=== PATIENT | male | born 1955 | race Caucasian/White ===

== ENCOUNTER 2022-03-20 11:58 | Outpatient (CLI) | payer OTHER, MEDICARE, SELFPAY ==
[2022-03-20 18:22] LABS: Cholesterol* 160 mg/dL (90-199); Triglycerides* 225 mg/dL (40-149)
[2022-03-20 18:23] LABS: HDL Cholesterol* 45 mg/dL (>=40); LDL Cholesterol Calculated 70 mg/dL (<100)
[2022-03-20 18:45] LABS: PSA Screen* 0.73 ng/mL (0.10-4.00)
[2022-03-20 19:13] LABS: Vitamin B12* 262 pg/mL (243-894)
== END 2022-03-20 11:59 | disposition home or self-care (01) ==
PROVIDERS: PCP Family Medicine; Visit Provider Family Medicine
DX: E78.5 Hyperlipidemia, unspecified (principal); E11.9 Type 2 diabetes mellitus without complications; I10 Essential (primary) hypertension; Z12.5 Encounter for screening for malignant neoplasm of prostate; Z13.21 Encounter for screening for nutritional disorder
CPT/HCPCS: 80061; 82607; 84153

== ENCOUNTER 2022-10-25 08:15 | Outpatient (CLI) | payer MEDICARE, SELFPAY ==
--- OUTSIDE RECORDS SUMMARY | 2022-10-27 15:37 | XMS_ITS | Continuity of Care Document ---
Author Name Unknown Organization [facility] maren Address [address] [place] [address] Phone Care Team Providers Care Assembler Surgical Garment Name Role Phone Will Siva FISCHER Unavailable Unavailabl e Allergies, Adverse Reactions, Alerts Substance Reaction Status Criticality No Known Allergies Active No Inform ation Medications Medication Instructions Dosage Effective Dates (start - stop) Status Comments GLIPIZIDE (unknown strength) take 20 milligram by oral route 2 times every day Not Available - Active tizanidine 2 mg tablet take 1 tablet by oral route every 8 hours as needed not to exceed 3 doses in 24 hours 2 MG - Active bupropion HCl SR 150 mg tablet,12 hr sustained-release take 1 tablet by oral route 2 times every day 150 MG - Active atenolol 50 mg tablet take 1 tablet by oral route every day 50 MG - Active atorvastatin 20 mg tablet take 1 tablet by oral route every day 20 MG - Active citalopram 40 mg tablet take 1 tablet by oral route every day 40 MG - Active lisinopril 20 mg tablet take 1 tablet by oral route every day 20 MG - Active metformin 1,000 mg Tab take 1 tablet (1000MG) by oral route 2 times every day with morning and evening meals 1000 MG - Active omeprazole 20 mg Cap, Delayed Release - Active Procedures Procedure Date INTERLAMINAR CRV OR THRC FLUOROGUIDE FOR SPINE INJECTION 019 OFFICE/OUTPATIENT VISIT, EST INJ FORAMEN EPIDURAL L/S BILATERAL FLUOROGUIDE FOR SPINE INJECTION OFFICE/OUTPATIENT VISIT, EST INTERLAMINAR CRV OR THRC INTERLAMINAR LMBR OR SAC OR CAUDAL FLUOROGUIDE FOR SPINE INJECTION 017 INJECT TRIGGER POINTS, =/> 3 Injection, bupivicaine hydro OFFICE/OUTPATIENT VISIT, EST INTERLAMINAR CRV OR THRC FLUOROGUIDE FOR SPINE INJECTION 017 OFFICE/OUTPATIENT VISIT, EST INTERLAMINAR CRV OR THRC FLUOROGUIDE FOR SPINE INJECTION 017 OFFICE/OUTPATIENT VISIT, EST Injection, bupivicaine hydro INJECT TRIGGER POINTS, =/> 3 OFFICE/OUTPATIENT VISIT, NEW INJ TRIGGER POINT, 1/2 MUSCL Injection, bupivicaine hydro OFFICE/OUTPATIENT VISIT, EST OFFICE/OUTPATIENT VISIT, EST Disabilty Reports Forms OFFICE/OUTPATIENT VISIT, EST OFFICE/OUTPATIENT VISIT, EST INJECT SPINE C/T-Office FLUOROGUIDE FOR SPINE INJECT Betamethasone acet&sod ph Omnipaque 240 20ml INJ TRIGGER POINT, /2 MUSCL Injection, bupivicaine hydro OFFICE/OUTPATIENT VISIT, EST OFFICE/OUTPATIENT VISIT, EST OFFICE/OUTPATIENT VISIT, EST OFFICE/OUTPATIENT VISIT, EST INJ FORAMEN EPIDURAL LS FLUOROGUIDE FOR SPINE INJ Betamethasone acet&sod ph Omnipaque 240 20ml OFFICE/OUTPATIENT VISIT, EST OFFICE/OUTPATIENT VISIT, EST Disabilty Reports Forms OFFICE/OUTPATIENT VISIT, EST INJ FORAMEN EPIDURAL LS FLUOROGUIDE FOR SPINE INJECT Omnipaque 240 20ml Betamethasone acet&sod phosp Lidocaine injection INJ TRIGGER POINT, 1/2 MUSCL OFFICE/OUTPATIENT VISIT, EST OFFICE/OUTPATIENT VISIT, EST OFFICE/OUTPATIENT VISIT, EST OFFICE/OUTPATIENT VISIT, EST Prescription Prior Auth OFFICE/OUTPATIENT VISIT, EST OFFICE/OUTPATIENT VISIT, EST OFFICE/OUTPATIENT VISIT, EST Lidocaine injection Betamethasone acet&sod phosp Omnipaque 240 20ml INJECT SPINE C/T FLUOROGUIDE FOR SPINE INJECT OFFICE/OUTPATIENT VISIT, EST OFFICE/OUTPATIENT VISIT, EST OFFICE/OUTPATIENT VISIT, EST OFFICE/OUTPATIENT VISIT, EST INJECT TRIGGER POINTS, =/> 3 Betamethasone acet&sod phosp Injection, bupivicaine hydro No Charge For Visit Per Prov OFFICE/OUTPATIENT VISIT, EST Disabilty Reports Forms OFFICE/OUTPATIENT VISIT, EST PAPER STRIPPER LETTER Advance Directives Directive Yes / No Effective Date File Name No Information Encounters Encounter Description Practice Location Reason(s) For Visit Diagnoses Date Provider Providers Copied on Encounter [facility], [address] [place] [address], [id number] , [place] tel:[phone] [facility] [place] No Information 2 Glen Paniagua. [address] [place] [address], [id number], [place]. tel:[phone] [facility], [address] [place] [address], [id number] , [place] tel:[phone] [facility] Other cervical disc degeneration, cervicothoracic region Sep-0 201 9 Eva Mcdowell. [address] [place] [address], [id number], [place]. tel:[phone] [place] [address] [facility] Clinic, [address] [place] [address], [place], [id number] , [place] tel:[phone] [facility] [place] Other cervical disc degeneration, cervicothoracic region Sep-0 9 Glen Paniagua. [address] [place], [place], [id number], [place]. tel:[phone] OFFICE/OUTPA TIENT VISIT, EST [facility], [address] [place] [address], [id number] , [place] tel:[phone] [facility] [place] Back Pain (chief complaint)N maria m Pain (chief complaint) Other cervical disc degeneration, cervicothoracic regionPostlamin ectomy syndrome, not elsewhere classifiedOther intervertebral disc degeneration, lumbar regionOther spondylosis with myelopathy, lumbar region Kassie Roxanna. [address] [place] [address], [id number], [place]. tel:[phone] Specialist: Aelc Weiss MD [facility] [address] [place] [address], [address]. tel:[phone] [facility], [address] [place] [address], [id number] , [place] [phone] [facility] Other intervertebral disc degeneration, lumbar region Maciasvivi Hernandez. [facility], [address] [facility] [address] [facility] [address], [place], [address], [place]. tel:[phone] OFFICE/OUTPA TIENT VISIT, [facility], [address] [place] [address], [id number] , [place] tel:[phone] [facility] [place] Back Pain (chief complaint)N maria m Pain (chief complaint) Postlaminectomy syndrome, not elsewhere classifiedOther spondylosis with myelopathy, lumbar regionOther cervical disc degeneration, cervicothoracic regionOther intervertebral disc degeneration, lumbar region Rasta Carter. [address] [place], [place], [id number], [place]. tel:[phone] Specialist: Alec Weiss MD [facility] [address] [facility] [address], [place], [address]. tel:[phone] [facility], [address] [place] [address], [id number] , [place] tel:[phone] [facility] [place] Spondylolysis, cervicothoracic region 0 7 Kokayeff July. [address] [place] [address], [id number], [place]. tel:[phone] [place] [address] [facility], [address] [place] [address], [id number] , [place] tel:[phone] [facility] [place] Spondylolysis, cervicothoracic region Apr-2 0201 7 Van Overbeke Emma. [address] [place] [address], [id number], [place]. tel:[phone] [place] [address] [facility], [address] [place] [address], [id number] , [place] tel:[phone] [facility] [place] Other spondylosis with myelopathy, lumbar region Apr- 9 7 Kokayeff July. [address] [place] [address], [id number], [place]. [phone] [place] [address] [facility], [address] [place] [address], [id number] , [place] tel:[phone] [facility] [place] Myalgia Apr-0 5-201 7 Van Overbeke Emma. [address] [place] [address], [id number], [place]. tel:[phone] OFFICE/OUTPA TIENT VISIT, EST [facility], [address] [place] [address], [id number] , [place] tel:[phone] [facility] [place] Neck pain (chief complaint)B ack Pain (chief complaint) Postlaminectomy syndrome, not elsewhere classifiedOther spondylosis with myelopathy, lumbar region Sep-0 6-201 7 Van Overbeke Emma. [address] [place] [address], [id number], [place]. tel:[phone] Specialist: [facility] [address] [facility] [address], [place], [address]. tel:[phone] [facility], [address] [place] [address], [id number] , [place] tel:[phone] [facility] [place] Other cervical disc degeneration, cervicothoracic region 7 Daly Metcalf. [address] [place] [address], [id number], [place]. [phone] [facility], [address] [place] [address], [id number] , [place] tel:[phone] [facility] [place] Other cervical disc degeneration, cervicothoracic region Glen Paniagua. [address] [place] [address], [id number], [place]. tel:[phone] OFFICE/OUTPA TIENT VISIT, EST [facility], [address] [place] [address], [id number] , [place] tel:[phone] [facility] [place] Widespread pain (chief complaint) MyalgiaOther cervical disc degeneration, unsp cervical regionOther intervertebral disc degeneration, lumbar regionPostlamin ectomy syndrome, not elsewhere classified 7 Rasta Carter. [address] [place] [address], [id number], [place]. tel:[phone] Specialist: Alec Weiss [facility] [address] [place] [address], [place], [address]. tel:[phone] [facility], [address] [place] [address], [id number] , [place] tel:[phone] [facility] [place] Other cervical disc degeneration, unsp cervical region 7 Eva Mcdowell. [address] [place] [address], [id number], [place]. tel:[phone] OFFICE/OUTPA TIENT VISIT, EST [facility], [address] [place] [address], [id number] , [place] tel:[phone] [facility] [place] Widespread pain (chief complaint) MyalgiaOther cervical disc degeneration, unspecified cervical regionOther intervertebral disc degeneration, lumbar regionPostlamin ectomy syndrome, not elsewhere classified Apr-1 7 Rasta Carter. [address] [place] [address], [id number], [place]. tel:[phone] Specialist: [facility] [address] [place] [address], [address]. [phone] [facility], [address] [place] [address], [id number] , [place] tel:[phone] [facility] [place] Myalgia Apr-0 7 Rasta Carter. [address] [place] [address], [id number], [place]. tel:[phone] OFFICE/OUTPA TIENT VISIT, [facility], [address] [place] [address], [id number] , [place] tel:[phone] [facility] Widespread pain (chief complaint) MyalgiaOther cervical disc degeneration, unspecified cervical regionOther intervertebral disc degeneration, lumbar regionPostlamin ectomy syndrome, not elsewhere classified Mar-2 7 Rasta Carter. [address] [place] [address], [id number], [place]. tel:[phone] Specialist: [facility] [address] [place] [address], [address]. [phone] [facility], [address] [place] [address], [id number] , [place] tel:[phone] [facility] chronic pain (chief complaint) Myalgia and myositis, unspecifiedDisp lacement of cervical intervertebral disc without myelopathy Apr-0 3 Glen Paniagua. [address] [place] [address], [id number], [place]. tel:[phone] OFFICE/OUTPA TIENT VISIT, [facility], [address] [place] [address], [id number] , [place] tel:[phone] [facility] [place] widespread pain (chief complaint) Displacement of cervical intervertebral disc without myelopathyDegen eration of lumbar or lumbosacral intervertebral disc 3 Will Siva. [address] [place] [address], [id number], [place]. tel:[phone] Specialist: [facility] [address] [place] [address], [address]. tel:[phone] OFFICE/OUTPA TIENT VISIT, EST [facility], [address] [place] [address], [id number] , [place] tel:[phone] [facility] [place] widespread pain (chief complaint) Displacement of cervical intervertebral disc without myelopathyDegen eration of lumbar or lumbosacral intervertebral disc 3 Will Siva. [address] [place] [address], [id number], [place]. tel:[phone] Specialist: [facility] [address] [place] [address], [id number]. tel:[phone] [facility], [address] [place] [address], [id number] , [place] tel:[phone] [facility] [place] No Information 2 No Information OFFICE/OUTPA TIENT VISIT, EST [facility], [address] [place] [address], [id number] , [place] tel:[phone] [facility] [place] widespread pain (chief complaint) Displacement of cervical intervertebral disc without myelopathyDegen eration of lumbar or lumbosacral intervertebral disc 2 Will Siva. [address] [place] [address], [id number], [place]. tel:[phone] Specialist: [facility] [address] [place] [address], [address]. tel:[phone] OFFICE/OUTPA TIENT VISIT, [facility], [address] [place] [address], [id number] , [place] tel:[phone] [facility] [place] widespread pain (chief complaint) Displacement of cervical intervertebral disc without myelopathyDegen eration of lumbar or lumbosacral intervertebral disc 2 No Demurrage Agent: [facility] [address] [place] [address], [address]. [phone] [facility], [address] [place], [place], [id number] , [place] tel:[phone] [facility] [place] Displacement of cervical intervertebral disc without myelopathy 2 Will Siva. [address] [place], [place], [id number], [place]. tel:[phone] OFFICE/OUTPA TIENT VISIT, EST [facility], [address] [place] [address], [id number] , [place] tel:[phone] [facility] widespread pain (chief complaint) Spasm of muscleDisplacem ent of cervical intervertebral disc without myelopathyDegen eration of lumbar or lumbosacral intervertebral disc 2 No Demurrage Agent: [facility] [address] [place] [address], [address]. [phone] OFFICE/OUTPA TIENT VISIT, [facility], [address] [place] [address], [id number] , [place] tel:[phone] [facility] [place] widespread pain (chief complaint) Displacement of cervical intervertebral disc without myelopathy 2 Will Siva. [address] [place], [place], [id number], [place]. tel:[phone] Specialist: [facility] [address] [place] [address], [address]. tel:[phone] OFFICE/OUTPA TIENT VISIT, [facility], [address] [place] [address], [id number] , [place] tel:[phone] [facility] [place] left neck pain (chief complaint)l eg pain/weakne ss (chief complaint) Degeneration of lumbar or lumbosacral intervertebral disc 2 Will Siva. [address] [place] [address], [id number], [place]. tel:[phone] Specialist: [facility] [address] [place] [address], [address]. tel:[phone] OFFICE/OUTPA TIENT VISIT, EST [facility], [address] [place] [address], [id number] , [place] tel:[phone] [facility] [place] right neck pain (chief complaint)r ight knee pain (chief complaint) Degeneration of lumbar or lumbosacral intervertebral disc 2 Will Siva. [address] [place] [address], [id number], [place]. tel:[phone] Specialist: [facility] [address] [place] [address], [address]. tel:[phone] [facility], [address] [place] [address], [id number] , [place] tel:[phone] [facility] [place] Degeneration of lumbar or lumbosacral intervertebral disc 2 Will Siva. [address] [place], [place], [id number], [place]. tel:[phone] OFFICE/OUTPA TIENT VISIT, [facility], [address] [place] [address], [id number] , [place] tel:[phone] [facility] [place] neck pain (chief complaint)l eft leg pain (chief complaint) Degeneration of lumbar or lumbosacral intervertebral discDisplacemen t of cervical intervertebral disc without myelopathy 2 Will Siva. [address] [place] [address], [id number], [place]. tel:[phone] Specialist: [facility] [address] [place] [address], [address]. tel:[phone] OFFICE/OUTPA TIENT VISIT, EST [facility], [address] [place] [address], [id number] , [place] tel:[phone] [facility] Displacement of cervical intervertebral disc without myelopathy 1 Will Siva. [address] [place] [address], [id number], [place]. tel:[phone] Specialist: [facility] [address], [address]. [phone] [facility], [address] [place] [address], [id number] , [place] tel:[phone] [facility] [place] No Information 1 No Information OFFICE/OUTPA TIENT VISIT, [facility], [address] [place] [address], [id number] , [place] tel:[phone] [facility] neck pain (chief complaint) Displacement of cervical intervertebral disc without myelopathy Sep-2 1 Will Siva. [address] [place] [address], [id number], [place]. tel:[phone] Specialist: Bob Perez [facility] [address] [place] [address], [address]. [phone] [place] [address] Pain [facility], [address] [place] [address], [id number] , [place] tel:[phone] [facility] [place] Degeneration of lumbar or lumbosacral intervertebral disc 1 Will Siva. [address] [place] [address], [id number], [place]. tel:[phone] OFFICE/OUTPA TIENT VISIT, [facility], [address] [place] [address], [id number] , [place] tel:[phone] [facility] neck and low back pain (chief complaint) Displacement of cervical intervertebral disc without myelopathyNeura lgia, neuritis, and radiculitis, unspecifiedDege neration of lumbar or lumbosacral intervertebral discSpasm of muscle 1 Will Siva. [address] [place], [place], [id number], [place]. tel:[phone] Specialist: [facility] [address], [address]. tel:[phone] OFFICE/OUTPA TIENT VISIT, [facility], [address] [place] [address], [id number] , [place] tel:[phone] [facility] [place] bilateral neck pain (chief complaint) Neuralgia, neuritis, and radiculitis, unspecifiedDisp lacement of cervical intervertebral disc without myelopathy 1 Will Siva. [address] [place], [place], [id number], [place]. tel:[phone] Specialist: Bob Perez [facility] [address], [address]. tel:[phone] OFFICE/OUTPA TIENT VISIT, [facility], [address] [place] [address], [id number] , [place] tel:[phone] [facility] neck pain (chief complaint) Displacement of cervical intervertebral disc without myelopathyNeura lgia, neuritis, and radiculitis, unspecified 1 Will Siva. [address] [place], [place], [id number], [place]. tel:[phone] Specialist: Bob Perez [facility] [address], [address]. tel:[phone] OFFICE/OUTPA TIENT VISIT, [facility], [address] [place] [address], [id number] , [place] tel:[phone] [facility] neck pain (chief complaint) Displacement of cervical intervertebral disc without myelopathyNeura lgia, neuritis, and radiculitis, unspecified 1 Will Siva. [address] [place] [address], [place], [id number], [place]. tel:[phone] Specialist: [facility] [address] [place] [address], [address]. tel:[phone] OFFICE/OUTPA TIENT VISIT, [facility], [address] [place] [address], [id number] , [place] tel:[phone] [facility] neck pain (chief complaint) Displacement of cervical intervertebral disc without myelopathyNeura lgia, neuritis, and radiculitis, unspecified Dec-2 1-201 0 Will Siva. [address] [place] [address], [id number], [place]. tel:[phone] Specialist: [facility] [address] [place] [address], [address]. tel:[phone] OFFICE/OUTPA TIENT VISIT, [facility], [address] [place] [address], [id number] , [place] tel:[phone] [facility] neck pain (chief complaint) Displacement of cervical intervertebral disc without myelopathyNeura lgia, neuritis, and radiculitis, unspecified Oct-2 0-201 0 Will Siva. [address] [place] [address], [id number], [place]. tel:[phone] Specialist: [facility] [address] [place] [address], [address]. tel:[phone] OFFICE/OUTPA TIENT VISIT, [facility], [address] [place] [address], [id number] , [place] tel:[phone] [facility] neck pain (chief complaint) Pain in thoracic spineDisplaceme nt of cervical intervertebral disc without myelopathy Sep-0 8-201 0 Will Siva. [address] [place], [place], [id number], [place]. tel:[phone] Specialist: [facility] [address], [place], [address]. tel:[phone] [facility], [address] [place] [address], [id number] , [place] [phone] [facility] Inj bilateral lumbar spine pain (chief complaint) CervicalgiaDisp lacement of cervical intervertebral disc without myelopathyPain in thoracic spine 0 Will Siva. [address] [place] [address], [id number], [place]. tel:[phone] OFFICE/OUTPA TIENT VISIT, EST [facility], [address] [place] [address], [id number] , [place] [phone] [facility] [place] neck pain (chief complaint) Displacement of cervical intervertebral disc without myelopathyCervi calgia 0 Will Siva. [address] [place] [address], [id number], [place]. tel:[phone] Specialist: [facility] [address] [place] [address], [address]. tel:[phone] OFFICE/OUTPA TIENT VISIT, EST [facility], [address] [place] [address], [id number] , [place] tel:[phone] [facility] [place] neck pain (chief complaint) CervicalgiaDisp lacement of cervical intervertebral disc without myelopathyPain in thoracic spine 0 Will Siva. [address] [place] [address], [id number], [place]. tel:[phone] Specialist: [facility] [address] [place] [address], [id number]. tel:[phone] OFFICE/OUTPA TIENT VISIT, EST [facility], [address] [place] [address], [id number] , [place] tel:[phone] [facility] [place] neck pain (chief complaint) Displacement of cervical intervertebral disc without myelopathyPain in thoracic spineCervicalgi aCarpal tunnel syndrome Oct- 0 Will Siva. [address] [place], [place], [id number], [place]. tel:[phone] Specialist: [facility] [address], [place], [address]. tel:[phone] OFFICE/OUTPA TIENT VISIT, EST [facility], [address] [place] [address], [id number] , [place] tel:[phone] [facility] [place] bilateral mid-back pain (chief complaint) Myalgia and myositis, unspecifiedPain in thoracic spineNeck sprain 0 Will Siva. [address] [place] [address], [id number], [place]. tel:[phone] [facility], [address] [place] [address], [id number] , [place] tel:[phone] [facility] No Information 0 No Information OFFICE/OUTPA TIENT VISIT, EST [facility], [address] [place] [address], [id number] , [place] tel:[phone] [facility] neck pain (chief complaint) Displacement of cervical intervertebral disc without myelopathyDegen eration of cervical intervertebral discCervicalgia Carpal tunnel syndrome 0 Will Isva. [address] [place] [address], [id number], [place]. tel:[phone] Specialist: [facility] [address], [place], [address]. tel:[phone] [facility], [address] [place] [address], [id number] , [place] tel:[phone] [facility] neck pain (chief complaint) Displacement of cervical intervertebral disc without myelopathyDegen eration of cervical intervertebral discCervicalgia 9 Will Siva. [address] [place] [address], [id number], [place]. tel:[phone] [facility], [address] [place] [address], [id number] , tel:[phone] [facility] [place] No Information 9 Will Siva. [address] [place] [address], [id number], [place]. tel:[phone] OFFICE/OUTPA TIENT VISIT, EST [facility], [address] [place] [address], [id number] , [place] tel:[phone] [facility] neck pain (chief complaint)t horacic spine pain (chief complaint) Degeneration of cervical intervertebral discCervicalgia Spasm of muscleDisplacem ent of cervical intervertebral disc without myelopathy 9 Will Siva. [address] [place] [address], [id number], [place]. tel:[phone] [employer]: ! Add QRC. [facility], [address] [place] [address], [id number] , tel:[phone] [facility] [place] No Information 9 No Information Family History Family Member Type Diagnosis Age At Onset Sister Problem (finding) Back Pain Mother Problem (finding) Back Pain Payers Payer name Insurance type Covered constitution party ID Rossana mcclellan(s) Charliewilfredo [facility] Replacement [id number] Social History Type Description Quantity Date Captured Comments Sex Male Smoking Status No Information Chief Complaint And Reason For Visit No Information Reason For Referral Reason For Referral No Information Plan Of Treatment Date Type Action Status Referral Ordered: MRI THORACIC SPINE W/O DYE ordered Referral Ordered: MRI LUMBAR SPINE W/O DYE ordered Referral Ordered: Refer to [facility] ordered History Of Present Illness Encounter Date Complaint History Of Prese nt Illness Back Pain (comments) Patient is here for follow up for ongoing cervical and lumbar pain. States his pain has been fluctuating since last OV. He had recently completed a lumbar DARIEN on 01/27 which provided 90-100% pain relief, further benefit still pending. Previous cervical DARIEN provided about 80% pain relief and is interested in repeat procedure. Currently prescribed Buprenorphine by his PCP which provides benefit. Denies side effects from current medication regimen. No other concerns today. Back Pain Severity level i s 7. Duration: chronic. The problem is fluctuating. It occurs persistently. Location of pain is lower back and neck.The patient describes the pain as an ache and sharp. Symptoms are aggravated by lifting, running, sitting, standing, twisting, movement and prolonged positioning. Symptoms are relieved by changing positions. Neck Pain Neck Pain Duration: chroni c. Back Pain Duration: chroni c. The problem is stable. It occurs persistently. Location of pain is lower back, neck and right shoulder. Pain is radiated to the right thigh.The patient describes the pain as an ache and sharp. Symptoms are aggravated by bending, lifting, lying/rest, housework and prolonged positioning. Symptoms are relieved by ice, rest, sitting, changing positions and standing. Back Pain (comments) Yony is h ere for a followup. He is not prescribed opioids due to several [employer] violations. He is interested in repeating epidurals. His last epidural was about a year ago. He also had lumbar imaging a year ago that he will track down and present to [facility] before scheduling an epidural. States he willing left [facility] to taper off opioids and was rx'ed Suboxone by Dr. Hopson. He also plans to taper off the Suboxone in the future. Back Pain Duration: chroni c. Neck pain The problem is s evere. Duration: chronic. The status of the symptoms are fluctuating. The frequency of pain is constant. Location of pain is bilateral head, bilateral posterior neck, left shoulder and bilateral upper back. There is radiation of pain to the left upper arm. The patient describes the pain as aching. Aggravating factors include climbing stairs, lifting and twisting. Relieving factors include ice, massage, narcotic analgesics and rest. Neck pain (comments) Patient is here for follow-up. Originally scheduled for pre-trial education, but has concerns regarding restrictions and plans on rescheduling. 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 Plans on possibly completing trial in June. Concerned about risks with trial as well. DARIEN completed on 02/19/17, has had 50% reduction, but may already wearing off. Requests revision of prescribing opioid medications. Currently being prescribed meds by PCP and would like [facility] to take over medications. Plans on transfer all injections or procedures to [facility]. Widespread pain Severity level i s 6. Duration: chronic. Location of the pain is lower back, upper back, neck and left shoulder. The patient describes it as sharp, achy and tingling. It occurs persistently. The problem is fluctuating. Symptom is aggravated by bending, standing, walking, lifting, twisting and prolonged positioning. Relieving factors include sitting, stretching, massage, rest, cold, Rx Meds, PT and lying down. Pertinent negatives include diarrhea, fatigue, fever and incontinence (urinary). Widespread pain (comments) Ed is here for a followup. He is not prescribed opioid medications from [facility] d/t multiple [employer] violations. Other medications provide 40% relief from pain, brings pain down from 9 to 6 out of 10. States receiving 80% relief with GAUDENCIO in radicular arm pain. He is here today regarding mistakes made during GAUDENCIO on 11/07. He has concerns that he has not been seen by a doctor since he reestablished at [facility]. States not being told to schedule another OV after injection to speak about results. He tries to walk a mile every day. He is also wanting [facility] to take over medication management. Widespread pain Severity level i s 5 w/meds. Duration: chronic. Location of the pain is lower back, mid back, upper back, right shoulder, rt arm and rt knee. The patient describes it as sharp and achy. It occurs persistently. The problem is fluctuating. Symptom is aggravated by running, sitting, standing, walking, lifting, running and twisting. Relieving factors include sitting, supine, stretching, massage, rest, heat, cold, Rx Meds and PT. Pertinent negatives include diarrhea, fatigue, fever and incontinence (urinary). Widespread pain (comments) Ed is here for a followup after initial visit. He is not prescribed opioid medication from [facility] d/t multple [employer] violations. Other medications provide 30-40% relief from pain. C/o intense shoulder pain that radiates down left arm, he does not believe it is orthopedic pain. TPI was effective at loosening muscle tightness. He has been completing PT since July and has noticed an increase in strength and stamina. States he will be starting to attend a support group for mental illness and pain in November. Widespread pain Onset occurred g radually. Severity level is 4-5. Duration: chronic. Location of the pain is lower back, mid back, upper back, neck, lt thumb, bl feet and head. The patient describes it as achy, stabbing and numbness. It occurs persistently. Symptom is aggravated by bending, running, standing, walking, turning head, twisting and housework. Relieving factors include sitting, rest, cold, Rx Meds and lying down. Pertinent negatives include diarrhea, dyspnea, fever and incontinence (urinary). Widespread pain (comments) Shashank rueda is here for a consult regarding widespread pain. He was referred by Dr. Jo at [facility] [place]. Pain started with progression of degenerative disc disorder. Pain symptoms were aggravated after partial discetomy in 2002. He had to stop working when pain became too intense in 2007. His cervical region is flattened d/t DDD. [facility] states risk outweighs benefits for another fusion for cerivcal region. Neck is worst pain with radicular left shoulder pain. He is interested in completing TPIs. He was a previous patient with [facility] was terminated d/t multiple [employer] violation. He feels he was unfairly terminated, stating he did not know what the first two violations were. He currently doing PT at [facility] and is effective for muscle strengthening. His PCP is able to continue ordering PT. He has previously completed GAUDENCIO and LESI and states effective at relieving pain. GAUDENCIO was ineffective at relieving pain. Imaging was completed at [facility]. Medications:Oxycontin, Oxycodone Functional Status Date Functional Assessmen t No Information Instructions Date Instruction Additional Infor mation Reviewed medications Activity as tolerated Ice as needed Discontinue current medication Reviewed medications Medications counted, patient is on track. Continue current medication Reviewed medications Patient did not brin g medications to office visit today. Depression Screen Oswestry Score Continue current medication Reviewed medications Medications counted, patient is on track. Change medication Reviewed medications Patient did not brin g medications to office visit today. Continue current medication Reviewed medications Patient did not brin g medications to office visit today. Change medication Continue current medication Reviewed medications Medications counted, patient is on track. Medications counted, patient is on track. Protective activity Medications counted, patient has self-escalated dose. Patient did not brin g medications to office visit today. Patient did not brin g medications to office visit today. Continue current medication Assessments Type Assessment Date No Information Patient Care Teams Name Effective Dates (start - stop) Status Members No Information
== END 2022-10-25 08:16 | disposition home or self-care (01) ==
LOC: NFLDREF 10-27 15:28
PROVIDERS: PCP Family Medicine; Referring Provider Family Medicine; Visit Provider Family Medicine
DX: E13.9 Other specified diabetes mellitus without complications (principal); E78.5 Hyperlipidemia, unspecified; D64.9 Anemia, unspecified; Z01.818 Encounter for other preprocedural examination; Z12.5 Encounter for screening for malignant neoplasm of prostate
CPT/HCPCS: 80048; 80061; 84153

== ENCOUNTER 2023-02-27 09:45 | Outpatient (CLI) | payer MEDICARE, SELFPAY | END 2023-02-27 09:46 | disposition home or self-care (01) | LOC: NFLDREF 03-03 05:57 | PROVIDERS: PCP Family Medicine; Referring Provider Family Medicine; Visit Provider Family Medicine | DX: B18.2 Chronic viral hepatitis C (principal); E13.9 Other specified diabetes mellitus without complications; E78.5 Hyperlipidemia, unspecified; Z12.5 Encounter for screening for malignant neoplasm of prostate; Z13.0 Encounter for screening for diseases of the blood and blood-forming organs and certain disorders involving the immune mechanism | CPT/HCPCS: 80053; 80061; 84153 ==

== ENCOUNTER 2023-03-05 09:19 | Outpatient (CLI) | payer MEDICARE, SELFPAY ==
--- OUTSIDE RECORDS SUMMARY | 2023-03-05 09:24 | XMS_ITS | Continuity of Care Document ---
Author Name Unknown Organization [facility] Address [address] [facility] [place] [address] Phone Care Team Providers Care Entry Level Management Name Role Phone Will Siva FISCHER Unavailable [...] EST Disabilty Reports Forms OFFICE/OUTPATIENT VISIT, EST DISABILITY COUNSELOR LETTER Advance Directives Directive Yes / No Effective Date File Name No Information Encounters Encounter Description Practice Location Reason(s) For Visit Diagnoses Date Provider Providers Copied on Encounter [facility], [address] [place] [address], [id number] , [place] tel:[phone] [facility] [place] No Information 2 Glen Paniagua. [address] [place] [address], [id number], [place]. tel:[phone] [facility], [address] [place] [address], [id number] , [place] tel:[phone] [facility] Other cervical disc degeneration, cervicothoracic region Sep-0 201 9 Eva Mcdowell. [address] [place] [address], [id number], [place]. tel:[phone] [place] [address] [facility], [address] [place] [address], [place], [id number] , [place] tel:[phone] [facility] [place] Other cervical disc degeneration, cervicothoracic region Sep-0 9 Glen Paniagua. [address] [place], [place], [id number], [place]. tel:[phone] OFFICE/OUTPA TIENT VISIT, EST [facility], [address] [place] [address], [id number] , [place] tel:[phone] [facility] [place] Back Pain (chief complaint)N maria m Pain (chief complaint) Other cervical disc degeneration, cervicothoracic regionPostlamin ectomy syndrome, not elsewhere classifiedOther intervertebral disc degeneration, lumbar regionOther spondylosis with myelopathy, lumbar region Kassie Roxanna. [address] [place] [address], [id number], [place]. tel:[phone] Specialist: Alec Weiss MD [facility] [address] Blalexander [address] [place] [address], [id number]. tel:[phone] [facility], [address] [place] [address], [id number] , [place] [phone] [facility] Other intervertebral disc degeneration, lumbar region Maciasvivi Hernandez. [facility], [address] [facility] [address] [facility] [address], [place], [address], [place]. tel:[phone] OFFICE/OUTPA TIENT VISIT, [facility], [address] [place] [address], [id number] , [place] tel:[phone] [facility] [place] Back Pain (chief complaint)N maria m Pain (chief complaint) Postlaminectomy syndrome, not elsewhere classifiedOther spondylosis with myelopathy, lumbar regionOther cervical disc degeneration, cervicothoracic regionOther intervertebral disc degeneration, lumbar region Rasta Carter. [address], [place], [id number], [place]. tel:[phone] Specialist: Alec Weiss MD [facility] [address] [facility] [address], [place], [address]. tel:[phone] [facility], [address] [place] [address], [id number] , [place] tel:[phone] [facility] [place] Spondylolysis, cervicothoracic region 0 7 Kokayeff July. [address] [place] [address], [id number], [place]. tel:[phone] [place] [address] [facility], [address] [place] [address], [id number] , [place] tel:[phone] [facility] [place] Spondylolysis, cervicothoracic region Apr-2 0201 7 Van Overbeke Emma. [address] [place] [address], [id number], [place]. tel:[phone] [place] [address] [facility], [address] [place] [address], [id number] , [place] tel:[phone] [facility] [place] Other spondylosis with myelopathy, lumbar region Apr- 9 7 Kokayeff July. [address] [place] [address], [id number], [place]. [phone] [place] [address] [facility], [address] [place] [address], [id number] , [place] tel:[phone] [facility] [place] Myalgia Apr-0 5-201 7 Van Overbeke Emma. [address] [place] [address], [id number], [place]. tel:[phone] OFFICE/OUTPA TIENT VISIT, EST [facility], [address] [place] [address], [id number] , [place] tel:[phone] [facility] [place] Neck pain (chief complaint)B ack Pain (chief complaint) Postlaminectomy syndrome, not elsewhere classifiedOther spondylosis with myelopathy, lumbar region Sep-0 6-201 7 Van Overbeke Emma. [address] [place] [address], [id number], [place]. tel:[phone] Specialist: [facility] [address]gg [facility] [address], [place], [address]. tel:[phone] [facility], [address] [place] [address], [id number] , [place] tel:[phone] [facility] [place] Other cervical disc degeneration, cervicothoracic region 7 Daly eMtcalf. [address] [place] [address], [id number], [place]. [phone] [facility], [address] [place] [address], [id number] , [place] tel:[phone] [facility] [place] Other cervical disc degeneration, cervicothoracic region Glen Paniagua. [address] [place] [address], [id number], [place]. tel:[phone] OFFICE/OUTPA TIENT VISIT, EST [facility], [address] [place] [address], [id number] , [place] tel:[phone] [facility] [place] Widespread pain (chief complaint) MyalgiaOther cervical disc degeneration, unsp cervical regionOther intervertebral disc degeneration, lumbar regionPostlamin ectomy syndrome, not elsewhere classified 7 Rasta Carter. [address] [place] [address], [id number], [place]. tel:[phone] Specialist: Alec Weiss [facility] [address] [place] [address], [place], [address]. tel:[phone] [facility], [address] [place] [address], [id number] , [place] tel:[phone] [facility] [place] Other cervical disc degeneration, unsp cervical region 7 Eva Mcdowell. [address] [place] [address], [id number], [place]. tel:[phone] OFFICE/OUTPA TIENT VISIT, EST [facility], [address] [place] [address], [id number] , [place] tel:[phone] [facility] [place] Widespread pain (chief complaint) MyalgiaOther cervical disc degeneration, unspecified cervical regionOther intervertebral disc degeneration, lumbar regionPostlamin ectomy syndrome, not elsewhere classified Apr-1 7 Rasta Carter. [address] [place] [address], [id number], [place]. tel:[phone] Specialist: [facility] [address], [address]. [phone] [facility], [address] [place] [address], [id number] , [place] tel:[phone] [facility] Myalgia Apr-0 7 Rasta Carter. [address] [place] [address], [id number], [place]. tel:[phone] OFFICE/OUTPA TIENT VISIT, [facility], [address] [place] [address], [id number] , [place] tel:[phone] [facility] Widespread pain (chief complaint) MyalgiaOther cervical disc degeneration, unspecified cervical regionOther intervertebral disc degeneration, lumbar regionPostlamin ectomy syndrome, not elsewhere classified Mar-2 7 Rasta Carter. [address] [place] [address], [id number], [place]. tel:[phone] Specialist: [facility] De[address], [address]. [phone] [facility], [address] [place] [address], [id number] , [place] tel:[phone] [facility] chronic pain (chief complaint) Myalgia and myositis, unspecifiedDisp lacement of cervical intervertebral disc without myelopathy Apr-0 3 Glen Paniagua. [address] [place] [address], [id number], [place]. tel:[phone] OFFICE/OUTPA TIENT VISIT, [facility], [address] [place] [address], [id number] , [place] tel: [phone] [facility] [place] widespread pain (chief complaint) Displacement of cervical intervertebral disc without myelopathyDegen eration of lumbar or lumbosacral intervertebral disc 3 Will Siva. [address] [place] [address], [id number], [place]. tel:[phone] Specialist: [facility] [address] [place] [address], [id number]. tel:[phone] OFFICE/OUTPA TIENT VISIT, EST [facility], [address] [place] [address], [id number] , [place] tel:[phone] [facility] [place] widespread pain (chief complaint) Displacement of cervical intervertebral disc without myelopathyDegen eration of lumbar or lumbosacral intervertebral disc 3 Will Siva. [address] [place] [address], [id number], [place]. tel:[phone] Specialist: [facility] [address] [place] [address], [id number]. [phone] [facility], [address] [place] [address], [id number] , [place] tel:[phone] [facility] [place] No Information 2 No Information OFFICE/OUTPA TIENT VISIT, EST [facility], [address] [place] [address], [id number] , [place] tel:[phone] [facility] [place] widespread pain (chief complaint) Displacement of cervical intervertebral disc without myelopathyDegen eration of lumbar or lumbosacral intervertebral disc 2 Will Siva. [address] [place] [address], [id number], [place]. tel:[phone] Specialist: [facility] [address] [place] [address], [id number]. tel:[phone] OFFICE/OUTPA TIENT VISIT, [facility], [address] [place] [address], [id number] , [place] tel:[phone] [facility] [place] widespread pain (chief complaint) Displacement of cervical intervertebral disc without myelopathyDegen eration of lumbar or lumbosacral intervertebral disc 2 No Urban Sociologist: [facility] [address] [place] [address], [address]. tel:[phone] [facility], [address] [place], [place], [id number] , [place] tel:[phone] [facility] [place] Displacement of cervical intervertebral disc without myelopathy 2 Will Siva. [address], [place], [id number], [place]. tel:[phone] OFFICE/OUTPA TIENT VISIT, EST [facility], [address] [place] [address], [id number] , [place] tel:[phone] [facility] widespread pain (chief complaint) Spasm of muscleDisplacem ent of cervical intervertebral disc without myelopathyDegen eration of lumbar or lumbosacral intervertebral disc 2 No Urban Sociologist: [facility] [address] [place] [address], [address]. tel:[phone] OFFICE/OUTPA TIENT VISIT, [facility], [address] [place] [address], [id number] , [place] tel:[phone] [facility] [place] widespread pain (chief complaint) Displacement of cervical intervertebral disc without myelopathy 2 Will Siva. [address], [place], [id number], [place]. tel:[phone] Specialist: [facility] [address] [place] [address], [address]. tel:[phone] OFFICE/OUTPA TIENT VISIT, [facility], [address] [place] [address], [id number] , [place] tel:[phone] [facility] [place] left neck pain (chief complaint)l eg pain/weakne ss (chief complaint) Degeneration of lumbar or lumbosacral intervertebral disc 2 Will Siva. [address] [place] [address], [id number], [place]. tel:[phone] Specialist: [facility] [address] [place] [address], [address]. tel:[phone] OFFICE/OUTPA TIENT VISIT, EST [facility], [address] [place] [address], [id number] , [place] tel:[phone] [facility] [place] right neck pain (chief complaint)r ight knee pain (chief complaint) Degeneration of lumbar or lumbosacral intervertebral disc 2 Will Siva. [address] [place] [address], [id number], [place]. tel:[phone] Specialist: [facility] [address] [place] [address], [address]. tel:[phone] [facility], [address] [place] [address], [id number] , [place] tel:[phone] [facility] [place] Degeneration of lumbar or lumbosacral intervertebral disc 2 Will Siva. [address], [place], [id number], [place]. tel:[phone] OFFICE/OUTPA TIENT VISIT, [facility], [address] [place] [address], [id number] , [place] tel:[phone] [facility] [place] neck pain (chief complaint)l eft leg pain (chief complaint) Degeneration of lumbar or lumbosacral intervertebral discDisplacemen t of cervical intervertebral disc without myelopathy 2 Will Siva. [address] [place] [address], [id number], [place]. tel:[phone] Specialist: [facility] [address] [place] [address], [id number]. tel:[phone] OFFICE/OUTPA TIENT VISIT, EST [facility], [address] [place] [address], [id number] , [place] tel:[phone] [facility] (chief complaint) Displacement of cervical intervertebral disc without myelopathy 1 Will Siva. [address] [place] [address], [id number], [place]. tel:[phone] Specialist: [facility] [address], [address]. [phone] [facility], [address] [place] [address], [id number] , [place] tel:[phone] [facility] [place] No Information 1 No Information OFFICE/OUTPA TIENT VISIT, [facility], [address] [place] [address], [id number] , [place] tel:[phone] [facility] neck pain (chief complaint) Displacement of cervical intervertebral disc without myelopathy Sep-2 1 Will Siva. [address] [place] [address], [id number], [place]. tel:[phone] Specialist: Bob Perez [facility] [address] [place] [address], [address]. [phone] [place] [address] Pain [facility], [address] [place] [address], [id number] , [place] tel:[phone] [facility] [place] Degeneration of lumbar or lumbosacral intervertebral disc 1 Will Siva. [address] [place] [address], [id number], [place]. tel:[phone] OFFICE/OUTPA TIENT VISIT, [facility], [address] [place] [address], [id number] , [place] tel:[phone] [facility] neck and low back pain (chief complaint) Displacement of cervical intervertebral disc without myelopathyNeura lgia, neuritis, and radiculitis, unspecifiedDege neration of lumbar or lumbosacral intervertebral discSpasm of muscle 1 Will Siva. [address], [place], [id number], [place]. tel:[phone] Specialist: [facility] [address], [address]. tel:[phone] OFFICE/OUTPA TIENT VISIT, [facility], [address] [place] [address], [id number] , [place] tel:[phone] [facility] [place] bilateral neck pain (chief complaint) Neuralgia, neuritis, and radiculitis, unspecifiedDisp lacement of cervical intervertebral disc without myelopathy 1 Will Siva. [address], [place], [id number], [place]. tel:[phone] Specialist: Bob Perez [facility] [address], [address]. tel:[phone] OFFICE/OUTPA TIENT VISIT, [facility], [address] [place] [address], [id number] , [place] tel:[phone] [facility] neck pain (chief complaint) Displacement of cervical intervertebral disc without myelopathyNeura lgia, neuritis, and radiculitis, unspecified 1 Will Siva. [address], [place], [id number], [place]. tel:[phone] Specialist: Bob Perez [facility] [address], [address]. tel:[phone] OFFICE/OUTPA TIENT VISIT, [facility], [address] [place] [address], [id number] , [place] tel:[phone] [facility] neck pain (chief complaint) Displacement of cervical intervertebral disc without myelopathyNeura lgia, neuritis, and radiculitis, unspecified 1 Will Siva. [address] [place] [address], [place], [id number], [place]. tel:[phone] Specialist: [facility] [address] [place] [address], [address]. tel:[phone] OFFICE/OUTPA TIENT VISIT, [facility], [address] [place] [address], [id number] , [place] tel:[phone] [facility] neck pain (chief complaint) Displacement of cervical intervertebral disc without myelopathyNeura lgia, neuritis, and radiculitis, unspecified Dec-2 1-201 0 Will Siva. [address] [place] [address], [id number], [place]. tel:[phone] Specialist: [facility] [address] [place] [address], [address]. tel:[phone] OFFICE/OUTPA TIENT VISIT, [facility], [address] [place] [address], [id number] , [place] tel:[phone] [facility] neck pain (chief complaint) Displacement of cervical intervertebral disc without myelopathyNeura lgia, neuritis, and radiculitis, unspecified Oct-2 0-201 0 Will Siva. [address] [place] [address], [id number], [place]. tel:[phone] Specialist: [facility] [address] [place] [address], [id number]. tel:[phone] OFFICE/OUTPA TIENT VISIT, [facility], [address] [place] [address], [id number] , [place] tel:[phone] [facility] neck pain (chief complaint) Pain in thoracic spineDisplaceme nt of cervical intervertebral disc without myelopathy Sep-0 8-201 0 Will Siva. [address], [place], [id number], [place]. tel:[phone] Specialist: [facility] [address], [place], [address]. tel:[phone] [facility], [address] [place] [address], [id number] , [place] [phone] [facility] Inj bilateral lumbar spine pain (chief complaint) CervicalgiaDisp lacement of cervical intervertebral disc without myelopathyPain in thoracic spine 0 Will Siva. [address] [place] [address], [id number], [place]. tel:[phone] OFFICE/OUTPA TIENT VISIT, EST [facility], [address] [place] [address], [id number] , [place] [phone] [facility] [place] neck pain (chief complaint) Displacement of cervical intervertebral disc without myelopathyCervi calgia 0 Will Siva. [address] [place] [address], [id number], [place]. tel:[phone] Specialist: [facility] [address] [place] [address], [address]. tel:[phone] OFFICE/OUTPA TIENT VISIT, EST [facility], [address] [place] [address], [id number] , [place] tel:[phone] [facility] [place] neck pain (chief complaint) CervicalgiaDisp lacement of cervical intervertebral disc without myelopathyPain in thoracic spine 0 Will Siva. [address] [place] [address], [id number], [place]. tel:[phone] Specialist: [facility] [address] [place] [address], [id number]. tel:[phone] OFFICE/OUTPA TIENT VISIT, EST [facility], [address] [place] [address], [id number] , [place] tel:[phone] [facility] [place] neck pain (chief complaint) Displacement of cervical intervertebral disc without myelopathyPain in thoracic spineCervicalgi aCarpal tunnel syndrome Oct- 0 Will Siva. [address], [place], [id number], [place]. tel:[phone] Specialist: [facility] EYolanda [facility] [address], [place], [address]. tel:[phone] OFFICE/OUTPA TIENT VISIT, EST [facility], [address] [place] [address], [id number] , [place] tel:[phone] [facility] [place] bilateral mid-back pain (chief complaint) Myalgia and myositis, unspecifiedPain in thoracic spineNeck sprain 0 Will Siva. [address] [place] [address], [id number], [place]. tel:[phone] [facility], [address] [place] [address], [id number] , [place] tel:[phone] [facility] No Information 0 No Information OFFICE/OUTPA TIENT VISIT, EST [facility], [address] [place] [address], [id number] , [place] tel: [phone] [facility] neck pain (chief complaint) Displacement of cervical intervertebral disc without myelopathyDegen eration of cervical intervertebral discCervicalgia Carpal tunnel syndrome 0 Will Siva. [address] [place] [address], [id number], [place]. tel:[phone] Specialist: [facility] E[facility]anda [facility] [address], [place], [address]. tel:[phone] [facility], [address] [place] [address], [id number] , [place] tel:[phone] [facility] neck pain (chief complaint) Displacement of cervical intervertebral disc without myelopathyDegen eration of cervical intervertebral discCervicalgia 9 Will Siva. [address] [place] [address], [id number], [place]. tel:[phone] [facility], [address] [place] [address], [id number] , tel:[phone] [facility] [facility] No Information 9 Will Siva. [address] [place] [address], [id number], [place]. tel:[phone] OFFICE/OUTPA TIENT VISIT, EST [facility], [address] [place] [address], [id number] , [place] tel:[phone] [facility] neck pain (chief complaint)t horacic spine pain (chief complaint) Degeneration of cervical intervertebral discCervicalgia Spasm of muscleDisplacem ent of cervical intervertebral disc without myelopathy 9 Will Siva. [address] [place] [address], [id number], [place]. 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 [facility], [address] [place] [address], [id number] , tel:[phone] [facility] No Information 9 No Information Family History Family Member Type Diagnosis Age At Onset Sister Problem (finding) Back Pain Mother Problem (finding) Back Pain Payers Payer name Insurance type Covered alliance party ID Rossana mcclellan(s) Charliewilfredo JESSICA [facility] Replacement [id number] Social History Type Description Quantity Date Captured [...] is not prescribed opioids due to several PROCESS CHEMIST violations. He is interested in repeating epidurals. His last epidural was about a year ago. He also had lumbar imaging a year ago that he will track down and present to [facility] before scheduling an epidural. States he willing left [facility] to taper off opioids and was rx'ed [...] prescribed meds by PCP and would like [facility] to take over medications. Plans on transfer all injections or procedures to [facility]. Widespread pain Severity level i s 6. [...] He is not prescribed opioid medications from [facility] d/t multiple PROCESS CHEMIST violations. Other medications provide 40% relief from pain, brings pain down from 9 to 6 out of 10. States receiving 80% relief with GAUDENCIO in radicular arm pain. He is here today regarding mistakes made during GAUDENCIO on 11/07. He has concerns that he has not been seen by a doctor since he reestablished at [facility]. States not being told to schedule another OV after injection to speak about results. He tries to walk a mile every day. He is also wanting [facility] to take over medication management. Widespread pain [...] He is not prescribed opioid medication from [facility] d/t multple PROCESS CHEMIST violations. Other medications provide 30-40% relief from [...] He was referred by Dr. Jo at [facility]. Pain started with progression of degenerative disc disorder. Pain symptoms were aggravated after partial discetomy in 2002. He had to stop working when pain became too intense in 2007. His cervical region is flattened d/t DDD. [facility] states risk outweighs benefits for another fusion for cerivcal region. Neck is worst pain with radicular left shoulder pain. He is interested in completing TPIs. He was a previous patient with [facility] was terminated d/t multiple PROCESS CHEMIST violation. He feels he was unfairly terminated, stating he did not know what the first two violations were. He currently doing PT at [facility] and is effective for muscle strengthening. His PCP is able to continue ordering PT. He has previously completed GAUDENCIO and LESI and states effective at relieving pain. GAUDENCIO was ineffective at relieving pain. Imaging was completed at [facility]. Medications:Oxycontin, Oxycodone Functional Status Date Functional [...]
== END 2023-03-05 09:20 | disposition home or self-care (01) ==
LOC: LONREF 09:20
PROVIDERS: PCP Family Medicine; Visit Provider Family Medicine
DX: Z01.818 Encounter for other preprocedural examination (principal)
CPT/HCPCS: 87081

== ENCOUNTER 2023-03-15 09:53 | Outpatient (CLI) | payer MEDICARE, SELFPAY ==
--- OUTSIDE RECORDS SUMMARY | 2023-03-15 09:56 | XMS_ITS | Continuity of Care Document ---
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 [address] [place] [address], [id number], [place]. tel:[phone] [facility], [address] [place] [address], [id number] , [place] tel:[phone] [facility] Other cervical disc degeneration, cervicothoracic region Sep-0 201 9 Eva Mcdowell. [address] [place] [address], [id number], [place]. tel:[phone] [place] [address] [facility] Clinic, [address] [place] [address], [place], [id number] , [place] tel:[phone] [facility] [place] Other cervical disc degeneration, cervicothoracic region Sep-0 9 Glen Paniagua. [address] [place], [place], [id number], [place]. tel:[phone] OFFICE/OUTPA TIENT VISIT, EST [facility], [address] [place] [address], [id number] , [place] tel:[phone] [facility] [place] Back Pain (chief complaint)N maria m Pain (chief complaint) Other cervical disc degeneration, cervicothoracic regionPostlamin ectomy syndrome, not elsewhere classifiedOther intervertebral disc degeneration, lumbar regionOther spondylosis with myelopathy, lumbar region Kassie Roxanna. [address] [place] [address], [id number], [place]. tel:[phone] Specialist: Alec Weiss MD [facility] [address] Bl[address] [place] [address], [id number]. tel:[phone] [facility], [address] [place] [address], [id number] , [place] [phone] [facility] Other intervertebral disc degeneration, lumbar region Maciasvivi Hernandez. [facility], [address] [facility] [address] [facility] [address], [place], [address], [place]. tel:[phone] OFFICE/OUTPA TIENT VISIT, [facility], [address] [place] [address], [id number] , [place] tel:[phone] [facility] [place] Back Pain (chief complaint)N maria m Pain (chief complaint) Postlaminectomy syndrome, not elsewhere classifiedOther spondylosis with myelopathy, lumbar regionOther cervical disc degeneration, cervicothoracic regionOther intervertebral disc degeneration, lumbar region Rasta Carter. [address] [place], [place], [id number], [place]. tel:[phone] Specialist: Alec Weiss MD [facility] [address] [facility] [address], [place], [address]. tel:[phone] [facility], [address] [place] [address], [id number] , [place] tel:[phone] [facility] [place] Spondylolysis, cervicothoracic region 0 7 Kokayeff July. [address] [place] [address], [id number], [place]. tel:[phone] [place] [address] [facility], [address] [place] [address], [id number] , [place] tel:[phone] [facility] [place] Spondylolysis, cervicothoracic region Apr-2 0201 7 Van Overbeke Emma. [address] [place] [address], [id number], [place]. tel:[phone] [place] [address] [facility], [address] [place] [address], [id number] , [place] tel:[phone] [facility] [place] Other spondylosis with myelopathy, lumbar region Apr- 9 7 Kokayeff July. [address] [place] [address], [id number], [place]. [phone] [place] [address] [facility], [address] [place] [address], [id number] , [place] tel:[phone] [facility] [place] Myalgia Apr-0 5-201 7 Van Overbeke Emma. [address] [place] [address], [id number], [place]. tel:[phone] OFFICE/OUTPA TIENT VISIT, EST [facility], [address] [place] [address], [id number] , [place] tel:[phone] [facility] [place] Neck pain (chief complaint)B ack Pain (chief complaint) Postlaminectomy syndrome, not elsewhere classifiedOther spondylosis with myelopathy, lumbar region Sep-0 6-201 7 Van Overbeke Emma. [address] [place] [address], [id number], [place]. tel:[phone] Specialist: [facility] [address] [facility] [address], [place], [address]. tel:[phone] [facility], [address] [place] [address], [id number] , [place] tel:[phone] [facility] [place] Other cervical disc degeneration, cervicothoracic region 7 Daly Metcalf. [address] [place] [address], [id number], [place]. [phone] [facility], [address] [place] [address], [id number] , [place] tel:[phone] [facility] [place] Other cervical disc degeneration, cervicothoracic region Glen Paniagua. [address] [place] [address], [id number], [place]. tel:[phone] OFFICE/OUTPA TIENT VISIT, EST [facility], [address] [place] [address], [id number] , [place] tel:[phone] [facility] [place] Widespread pain (chief complaint) MyalgiaOther cervical disc degeneration, unsp cervical regionOther intervertebral disc degeneration, lumbar regionPostlamin ectomy syndrome, not elsewhere classified 7 Rasta Carter. [address] [place] [address], [id number], [place]. tel:[phone] Specialist: Alec Weiss [facility] [address] [place] [address], [place], [address]. tel:[phone] [facility], [address] [place] [address], [id number] , [place] tel:[phone] [facility] [place] Other cervical disc degeneration, unsp cervical region 7 Eva Mcdowell. [address] [place] [address], [id number], [place]. tel:[phone] OFFICE/OUTPA TIENT VISIT, EST [facility], [address] [place] [address], [id number] , [place] tel:[phone] [facility] [place] Widespread pain (chief complaint) MyalgiaOther cervical disc degeneration, unspecified cervical regionOther intervertebral disc degeneration, lumbar regionPostlamin ectomy syndrome, not elsewhere classified Apr-1 7 Rasta Carter. [address] [place] [address], [id number], [place]. tel:[phone] Specialist: [facility] [address], [address]. [phone] [facility], [address] [place] [address], [id number] , [place] tel:[phone] [facility] [place] Myalgia Apr-0 7 Rasta Carter. [address] [place] [address], [id number], [place]. tel:[phone] OFFICE/OUTPA TIENT VISIT, [facility], [address] [place] [address], [id number] , [place] tel:[phone] [facility] Widespread pain (chief complaint) MyalgiaOther cervical disc degeneration, unspecified cervical regionOther intervertebral disc degeneration, lumbar regionPostlamin ectomy syndrome, not elsewhere classified Mar-2 7 Rasta Carter. [address] [place] [address], [id number], [place]. tel:[phone] Specialist: [facility] [address], [address]. [phone] [facility], [address] [place] [address], [id number] , [place] tel:[phone] [facility] chronic pain (chief complaint) Myalgia and myositis, unspecifiedDisp lacement of cervical intervertebral disc without myelopathy Apr-0 3 Glen Paniagua. [address] [place] [address], [id number], [place]. tel:[phone] OFFICE/OUTPA TIENT VISIT, [facility], [address] [place] [address], [id number] , [place] tel:[phone] [facility] [place] widespread pain (chief complaint) Displacement of cervical intervertebral disc without myelopathyDegen eration of lumbar or lumbosacral intervertebral disc 3 Will Siva. [address] [place] [address], [id number], [place]. tel:[phone] Specialist: [facility] [address] [place] [address], [id number]. tel:[phone] OFFICE/OUTPA TIENT VISIT, EST [facility], [address] [place] [address], [id number] , [place] tel:[phone] [facility] [place] widespread pain (chief complaint) Displacement of cervical intervertebral disc without myelopathyDegen eration of lumbar or lumbosacral intervertebral disc 3 Will Siva. [address] [place] [address], [id number], [place]. tel:[phone] Specialist: [facility] [address] [place] [address], [id number]. tel:[phone] [facility], [address] [place] [address], [id number] , [place] tel:[phone] [facility] [place] No Information 2 No Information OFFICE/OUTPA TIENT VISIT, EST [facility], [address] [place] [address], [id number] , [place] tel:[phone] [facility] [place] widespread pain (chief complaint) Displacement of cervical intervertebral disc without myelopathyDegen eration of lumbar or lumbosacral intervertebral disc 2 Will Siva. [address] [place] [address], [id number], [place]. tel:[phone] Specialist: [facility] [address] [place] [address], [id number]. tel:[phone] OFFICE/OUTPA TIENT VISIT, [facility], [address] [place] [address], [id number] , [place] tel:[phone] [facility] [place] widespread pain (chief complaint) Displacement of cervical intervertebral disc without myelopathyDegen eration of lumbar or lumbosacral intervertebral disc 2 No Internal Medicine Nurse Practitioner: [facility] [address] [place] [address], [id number]. [phone] [facility], [address] [place], [place], [id number] , [place] tel:[phone] [facility] [place] Displacement of cervical intervertebral disc without myelopathy 2 Will Siva. [address] [place], [place], [id number], [place]. tel:[phone] OFFICE/OUTPA TIENT VISIT, EST [facility], [address] [place] [address], [id number] , [place] tel:[phone] [facility] widespread pain (chief complaint) Spasm of muscleDisplacem ent of cervical intervertebral disc without myelopathyDegen eration of lumbar or lumbosacral intervertebral disc 2 No Internal Medicine Nurse Practitioner: [facility] [address] [place] [address], [id number]. [phone] OFFICE/OUTPA TIENT VISIT, [facility], [address] [place] [address], [id number] , [place] tel:[phone] [facility] [place] widespread pain (chief complaint) Displacement of cervical intervertebral disc without myelopathy 2 Will Siva. [address] [place], [place], [id number], [place]. tel:[phone] Specialist: [facility] [address] [place] [address], [id number]. [phone] OFFICE/OUTPA TIENT VISIT, [facility], [address] [place] [address], [id number] , [place] tel:[phone] [facility] [place] left neck pain (chief complaint)l eg pain/weakne ss (chief complaint) Degeneration of lumbar or lumbosacral intervertebral disc 2 Will Siva. [address] [place] [address], [id number], [place]. tel:[phone] Specialist: [facility] [address] [place] [address], [id number]. tel:[phone] OFFICE/OUTPA TIENT VISIT, EST [facility], [address] [place] [address], [id number] , [place] tel:[phone] [facility] [place] right neck pain (chief complaint)r ight knee pain (chief complaint) Degeneration of lumbar or lumbosacral intervertebral disc 2 Will Siva. [address] [place] [address], [id number], [place]. tel:[phone] Specialist: [facility] [address] [place] [address], [id number]. tel:[phone] [facility], [address] [place] [address], [id number] , [place] tel:[phone] [facility] [place] Degeneration of lumbar or lumbosacral intervertebral disc 2 Will Siva. [address] [place], [place], [id number], [place]. tel:[phone] OFFICE/OUTPA TIENT VISIT, [facility], [address] [place] [address], [id number] , [place] tel:[phone] [facility] [place] neck pain (chief complaint)l eft leg pain (chief complaint) Degeneration of lumbar or lumbosacral intervertebral discDisplacemen t of cervical intervertebral disc without myelopathy 2 Will Siva. [address] [place] [address], [id number], [place]. tel:[phone] Specialist: [facility] [address] [place] [address], [id number]. tel:[phone] OFFICE/OUTPA TIENT VISIT, EST [facility], [address] [place] [address], [id number] , [place] tel:[phone] [facility] Displacement of cervical intervertebral disc without myelopathy 1 Will Siva. [address] [place] [address], [id number], [place]. tel:[phone] Specialist: [facility] [address], [address]. [phone] [facility], [address] [place] [address], [id number] , [place] tel:[phone] [facility] [place] No Information 1 No Information OFFICE/OUTPA TIENT VISIT, [facility], [address] [place] [address], [id number] , [place] tel:[phone] [facility] neck pain (chief complaint) Displacement of cervical intervertebral disc without myelopathy Sep-2 1 Will Siva. [address] [place] [address], [id number], [place]. tel:[phone] Specialist: Bob Perez [facility] [address] [place] [address], [id number]. [phone] [place] [address] Pain [facility], [address] [place] [address], [id number] , [place] tel:[phone] [facility] [place] Degeneration of lumbar or lumbosacral intervertebral disc 1 Will Siva. [address] [place] [address], [id number], [place]. tel:[phone] OFFICE/OUTPA TIENT VISIT, [facility], [address] [place] [address], [id number] , [place] tel:[phone] [facility] neck and low back pain (chief complaint) Displacement of cervical intervertebral disc without myelopathyNeura lgia, neuritis, and radiculitis, unspecifiedDege neration of lumbar or lumbosacral intervertebral discSpasm of muscle 1 Will Siva. [address] [place], [place], [id number], [place]. tel:[phone] Specialist: [facility] [address], [address]. tel:[phone] OFFICE/OUTPA TIENT VISIT, [facility], [address] [place] [address], [id number] , [place] tel:[phone] [facility] [place] bilateral neck pain (chief complaint) Neuralgia, neuritis, and radiculitis, unspecifiedDisp lacement of cervical intervertebral disc without myelopathy 1 Will Siva. [address] [place], [place], [id number], [place]. tel:[phone] Specialist: Bob Perez [facility] [address], [address]. tel:[phone] OFFICE/OUTPA TIENT VISIT, [facility], [address] [place] [address], [id number] , [place] tel:[phone] [facility] neck pain (chief complaint) Displacement of cervical intervertebral disc without myelopathyNeura lgia, neuritis, and radiculitis, unspecified 1 Will Siva. [address] [place], [place], [id number], [place]. tel:[phone] Specialist: Bob Perez [facility] [address], [address]. tel:[phone] OFFICE/OUTPA TIENT VISIT, [facility], [address] [place] [address], [id number] , [place] tel:[phone] [facility] neck pain (chief complaint) Displacement of cervical intervertebral disc without myelopathyNeura lgia, neuritis, and radiculitis, unspecified 1 Will Siva. [address] [place] [address], [place], [id number], [place]. tel:[phone] Specialist: [facility] [address] [place] [address], [address]. tel:[phone] OFFICE/OUTPA TIENT VISIT, [facility], [address] [place] [address], [id number] , [place] tel:[phone] [facility] neck pain (chief complaint) Displacement of cervical intervertebral disc without myelopathyNeura lgia, neuritis, and radiculitis, unspecified Dec-2 1-201 0 Will Siva. [address] [place] [address], [id number], [place]. tel:[phone] Specialist: [facility] [address] [place] [address], [id number]. tel:[phone] OFFICE/OUTPA TIENT VISIT, [facility], [address] [place] [address], [id number] , [place] tel:[phone] [facility] neck pain (chief complaint) Displacement of cervical intervertebral disc without myelopathyNeura lgia, neuritis, and radiculitis, unspecified Oct-2 0-201 0 Will Siva. [address] [place] [address], [id number], [place]. tel:[phone] Specialist: [facility] [address] [place] [address], [id number]. tel:[phone] OFFICE/OUTPA TIENT VISIT, [facility], [address] [place] [address], [id number] , [place] tel:[phone] [facility] neck pain (chief complaint) Pain in thoracic spineDisplaceme nt of cervical intervertebral disc without myelopathy Sep-0 8-201 0 Will Siva. [address] [place], [place], [id number], [place]. tel:[phone] Specialist: [facility] [address], [place], [address]. tel:[phone] [facility], [address] [place] [address], [id number] , [place] [phone] [facility] Inj bilateral lumbar spine pain (chief complaint) CervicalgiaDisp lacement of cervical intervertebral disc without myelopathyPain in thoracic spine 0 Will Siva. [address] [place] [address], [id number], [place]. tel:[phone] OFFICE/OUTPA TIENT VISIT, EST [facility], [address] [place] [address], [id number] , [place] [phone] [facility] [place] neck pain (chief complaint) Displacement of cervical intervertebral disc without myelopathyCervi calgia 0 Will Siva. [address] [place] [address], [id number], [place]. tel:[phone] Specialist: [facility] [address] [place] [address], [id number]. tel:[phone] OFFICE/OUTPA TIENT VISIT, EST [facility], [address] [place] [address], [id number] , [place] tel:[phone] [facility] [place] neck pain (chief complaint) CervicalgiaDisp lacement of cervical intervertebral disc without myelopathyPain in thoracic spine 0 Will Siva. [address] [place] [address], [id number], [place]. tel:[phone] Specialist: [facility] [address] [place] [address], [id number]. tel:[phone] OFFICE/OUTPA TIENT VISIT, EST [facility], [address] [place] [address], [id number] , [place] tel:[phone] [facility] [place] neck pain (chief complaint) Displacement of cervical intervertebral disc without myelopathyPain in thoracic spineCervicalgi aCarpal tunnel syndrome Oct- 0 Will Siva. [address] [place], [place], [id number], [place]. tel:[phone] Specialist: [facility] [address] [facility] [address], [place], [address]. tel:[phone] OFFICE/OUTPA TIENT VISIT, EST [facility], [address] [place] [address], [id number] , [place] tel:[phone] [facility] [place] bilateral mid-back pain (chief complaint) Myalgia and myositis, unspecifiedPain in thoracic spineNeck sprain 0 Will Siva. [address] [place] [address], [id number], [place]. tel:[phone] [facility], [address] [place] [address], [id number] , [place] tel:[phone] [facility] No Information 0 No Information OFFICE/OUTPA TIENT VISIT, EST [facility], [address] [place] [address], [id number] , [place] tel:[phone] [facility] neck pain (chief complaint) Displacement of cervical intervertebral disc without myelopathyDegen eration of cervical intervertebral discCervicalgia Carpal tunnel syndrome 0 Will Siva. [address] [place] [address], [id number], [place]. tel:[phone] Specialist: [facility] [address] [facility] [address], [place], [address]. tel:[phone] [facility], [address] [place] [address], [id number] , [place] tel:[phone] [facility] neck pain (chief complaint) Displacement of cervical intervertebral disc without myelopathyDegen eration of cervical intervertebral discCervicalgia 9 Will Siva. [address] [place] [address], [id number], [place]. tel:[phone] [facility], [address] [place] [address], [id number] , tel:[phone] [facility] [place] No Information 9 Will Siva. [address] [place] [address], [id number], [place]. tel:[phone] OFFICE/OUTPA TIENT VISIT, EST [facility], [address] [place] [address], [id number] , [place] tel:[phone] [facility] neck pain (chief complaint)t horacic spine pain (chief complaint) Degeneration of cervical intervertebral discCervicalgia Spasm of muscleDisplacem ent of cervical intervertebral disc without myelopathy 9 Will Siva. [address] [place] [address], [id number], [place]. tel:[phone] Director Financial Planning: ! Add QRC. [facility], [address] [place] [address], [id number] , tel:[phone] [facility] [place] No Information 9 No Information Family History Family Member Type Diagnosis Age At Onset Sister Problem (finding) Back Pain Mother Problem (finding) Back Pain Payers Payer name Insurance type Covered democrat ID Rossana mcclellan(s) Charliewilfredo [facility] Replacement [id number] Social History Type Description Quantity Date Captured [...] is not prescribed opioids due to several [employer] violations. He is interested in repeating epidurals. His last epidural was about a year ago. He also had lumbar imaging a year ago that he will track down and present to [facility] before scheduling an epidural. States he willing left [facility] to taper off opioids and was rx'ed [...] prescribed meds by PCP and would like [facility] to take over medications. Plans on transfer all injections or procedures to [facility]. Widespread pain Severity level i s [...] He is not prescribed opioid medications from [facility] d/t multiple [employer] violations. Other medications provide 40% relief from pain, brings pain down from 9 to 6 out of 10. States receiving 80% relief with GAUDENCIO in radicular arm pain. He is here today regarding mistakes made during GAUDENCIO on 11/07. He has concerns that he has not been seen by a doctor since he reestablished at [facility]. States not being told to schedule another OV after injection to speak about results. He tries to walk a mile every day. He is also wanting [facility] to take over medication management. Widespread [...] He is not prescribed opioid medication from [facility] d/t multple [employer] violations. Other medications provide 30-40% relief from [...] He was referred by Dr. Jo at [facility]. Pain started with progression of degenerative disc disorder. Pain symptoms were aggravated after partial discetomy in 2002. He had to stop working when pain became too intense in 2007. His cervical region is flattened d/t DDD. [facility] states risk outweighs benefits for another fusion for cerivcal region. Neck is worst pain with radicular left shoulder pain. He is interested in completing TPIs. He was a previous patient with [facility] was terminated d/t multiple [employer] violation. He feels he was unfairly terminated, stating he did not know what the first two violations were. He currently doing PT at [facility] and is effective for muscle strengthening. His PCP is able to continue ordering PT. He has previously completed GAUDENCIO and LESI and states effective at relieving pain. GAUDENCIO was ineffective at relieving pain. Imaging was completed at [facility]. Medications:Oxycontin, Oxycodone Functional Status Date Functional [...]
== END 2023-03-15 09:54 | disposition home or self-care (01) ==
LOC: LONREF 09:53
PROVIDERS: PCP Family Medicine; Visit Provider Family Medicine
DX: Z01.818 Encounter for other preprocedural examination (principal)
CPT/HCPCS: 87081

== ENCOUNTER 2023-05-01 08:12 | Outpatient (CLI) | payer MEDICARE, SELFPAY ==
--- OUTSIDE RECORDS SUMMARY | 2023-05-01 08:15 | XMS_ITS | Continuity of Care Document ---
Author Name Unknown Organization [facility] Address [address] [place] [address] Phone Care Team Providers Care Human Resources Leader Name Role Phone Will Siva FISCHER Unavailable [...] EST Disabilty Reports Forms OFFICE/OUTPATIENT VISIT, EST TUBE ROOM CASHIER LETTER Advance Directives Directive Yes / No Effective Date File Name No Information Encounters Encounter Description Practice Location Reason(s) For Visit Diagnoses Date Provider Providers Copied on Encounter [facility], [address] [place] [address], [id number] , [place] tel:[phone] [facility] [place] No Information 2 Glen Paniagua. [address] [place] [address], [id number], [place]. tel:[phone] [facility], [address] [place] [address], [id number] , [place] tel:[phone] [facility] Other cervical disc degeneration, cervicothoracic region Sep-0 201 9 Eva Mcdowell. [address] [place] [address], [id number], [place]. tel:[phone] [place] [address] [facility], [address] [place] [address], [place], [id number] , [place] tel:[phone] [facility] [place] Other cervical disc degeneration, cervicothoracic region Sep-0 9 Glen Paniagua. [address] [place], [place], [id number], [place]. tel:[phone] OFFICE/OUTPA TIENT VISIT, EST [facility], [address] [place] [address], [id number] , [place] tel:[phone] [facility] [place] Back Pain (chief complaint)N maria m Pain (chief complaint) Other cervical disc degeneration, cervicothoracic regionPostlamin ectomy syndrome, not elsewhere classifiedOther intervertebral disc degeneration, lumbar regionOther spondylosis with myelopathy, lumbar region Kassie Roxanna. [address] [place] [address], [id number], [place]. tel:[phone] Specialist: Alec Weiss MD [facility] [address] Bl[address] [place] [address], [address]. tel:[phone] [facility], [address] [place] [address], [id number] , [place] [phone] [facility] Other intervertebral disc degeneration, lumbar region Maciasvivi Hernandez. [facility], [address] [facility] [address], [address], [place]. tel:[phone] OFFICE/OUTPA TIENT VISIT, [facility], [address] [place] [address], [id number] , [place] tel:[phone] [facility] [place] Back Pain (chief complaint)N maria m Pain (chief complaint) Postlaminectomy syndrome, not elsewhere classifiedOther spondylosis with myelopathy, lumbar regionOther cervical disc degeneration, cervicothoracic regionOther intervertebral disc degeneration, lumbar region Rasta Carter. [address] [place], [place], [id number], [place]. tel:[phone] Specialist: Alec Weiss MD [facility] [address] [facility] [address], [place], [address]. tel:[phone] [facility], [address] [place] [address], [id number] , [place] tel:[phone] [facility] [place] Spondylolysis, cervicothoracic region 0 7 Kokayeff July. [address] [place] [address], [id number], [place]. tel:[phone] [place] [address] [facility], [address] [place] [address], [id number] , [place] tel:[phone] [facility] [place] Spondylolysis, cervicothoracic region Apr-2 0201 7 Van Overbeke Emma. [address] [place] [address], [id number], [place]. tel:[phone] [place] [address] [facility], [address] [place] [address], [id number] , [place] tel:[phone] [facility] [place] Other spondylosis with myelopathy, lumbar region Apr- 9 7 Kokayeff July. [address] [place] [address], [id number], [place]. [phone] [place] [address] [facility], [address] [place] [address], [id number] , [place] tel:[phone] [facility] Roxy Myalgia Apr-0 5-201 7 Van Overbeke Emma. [address] [place] [address], [id number], [place]. tel:[phone] OFFICE/OUTPA TIENT VISIT, EST [facility], [address] [place] [address], [id number] , [place] tel:[phone] [facility] [place] Neck pain (chief complaint)B ack Pain (chief complaint) Postlaminectomy syndrome, not elsewhere classifiedOther spondylosis with myelopathy, lumbar region Sep-0 6-201 7 Van Overbeke Emma. [address] [place] [address], [id number], [place]. tel:[phone] Specialist: [facility] [address] [facility] [address], [place], [address]. tel:[phone] [facility], [address] [place] [address], [id number] , [place] tel:[phone] [facility] [place] Other cervical disc degeneration, cervicothoracic region 7 Daly Metcalf. [address] [place] [address], [id number], [place]. [phone] [facility], [address] [place] [address], [id number] , [place] tel:[phone] [facility] [place] Other cervical disc degeneration, cervicothoracic region Glen Paniagua. [address] [place] [address], [id number], [place]. tel:[phone] OFFICE/OUTPA TIENT VISIT, EST [facility], [address] [place] [address], [id number] , [place] tel:[phone] [facility] [place] Widespread pain (chief complaint) MyalgiaOther cervical disc degeneration, unsp cervical regionOther intervertebral disc degeneration, lumbar regionPostlamin ectomy syndrome, not elsewhere classified 7 Rasta Carter. [address] [place] [address], [id number], [place]. tel:[phone] Specialist: Alec Weiss [facility] [address] [place] [address], [place], [address]. tel:[phone] [facility], [address] [place] [address], [id number] , [place] tel:[phone] [facility] [place] Other cervical disc degeneration, unsp cervical region 7 Eva Mcdowell. [address] [place] [address], [id number], [place]. tel:[phone] OFFICE/OUTPA TIENT VISIT, EST [facility], [address] [place] [address], [id number] , [place] tel:[phone] [facility] [place] Widespread pain (chief complaint) MyalgiaOther cervical disc degeneration, unspecified cervical regionOther intervertebral disc degeneration, lumbar regionPostlamin ectomy syndrome, not elsewhere classified Apr-1 7 Rasta Carter. [address] [place] [address], [id number], [place]. tel:[phone] Specialist: [facility] [address], [address]. [phone] [facility], [address] [place] [address], [id number] , [place] tel:[phone] [facility] [place] Myalgia Apr-0 7 Rasta Carter. [address] [place] [address], [id number], [place]. tel:[phone] OFFICE/OUTPA TIENT VISIT, [facility], [address] [place] [address], [id number] , [place] tel:[phone] [facility] Widespread pain (chief complaint) MyalgiaOther cervical disc degeneration, unspecified cervical regionOther intervertebral disc degeneration, lumbar regionPostlamin ectomy syndrome, not elsewhere classified Mar-2 7 Rasta Carter. [address] [place] [address], [id number], [place]. tel:[phone] Specialist: [facility] [address], [address]. [phone] [facility], [address] [place] [address], [id number] , [place] tel:[phone] [facility] chronic pain (chief complaint) Myalgia and myositis, unspecifiedDisp lacement of cervical intervertebral disc without myelopathy Apr-0 3 Glen Paniagua. [address] [place] [address], [id number], [place]. tel:[phone] OFFICE/OUTPA TIENT VISIT, [facility], [address] [place] [address], [id number] , [place] tel:[phone] [facility] [place] widespread pain (chief complaint) Displacement of cervical intervertebral disc without myelopathyDegen eration of lumbar or lumbosacral intervertebral disc 3 Will Siva. [address] [place] [address], [id number], [place]. tel:[phone] Specialist: [facility] [address] [place] [address], [address]. tel:[phone] OFFICE/OUTPA TIENT VISIT, EST [facility], [address] [place] [address], [id number] , [place] tel:[phone] [facility] [place] widespread pain (chief complaint) Displacement of cervical intervertebral disc without myelopathyDegen eration of lumbar or lumbosacral intervertebral disc 3 Will Siva. [address] [place] [address], [id number], [place]. tel:[phone] Specialist: [facility] [address] [place] [address], [address]. tel:[phone] [facility], [address] [place] [address], [id number] , [place] tel:[phone] [facility] [place] No Information 2 No Information OFFICE/OUTPA TIENT VISIT, EST [facility], [address] [place] [address], [id number] , [place] tel:[phone] [facility] [place] widespread pain (chief complaint) Displacement of cervical intervertebral disc without myelopathyDegen eration of lumbar or lumbosacral intervertebral disc 2 Will Siva. [address] [place] [address], [id number], [place]. tel:[phone] Specialist: [facility] [address] [place] [address], [address]. tel:[phone] OFFICE/OUTPA TIENT VISIT, [facility], [address] [place] [address], [id number] , [place] tel:[phone] [facility] [place] widespread pain (chief complaint) Displacement of cervical intervertebral disc without myelopathyDegen eration of lumbar or lumbosacral intervertebral disc 2 No Technical Data Analyst: [facility] [address] [place] [address], [id number]. [phone] [facility], [address] [place], [place], [id number] , [place] tel:[phone] [facility] [place] Displacement of cervical intervertebral disc without myelopathy 2 Will Siva. [address] [place], [place], [id number], [place]. tel:[phone] OFFICE/OUTPA TIENT VISIT, EST [facility], [address] [place] [address], [id number] , [place] tel:[phone] [facility] widespread pain (chief complaint) Spasm of muscleDisplacem ent of cervical intervertebral disc without myelopathyDegen eration of lumbar or lumbosacral intervertebral disc 2 No Technical Data Analyst: [facility] [address] [place] [address], [address]. tel:[phone] OFFICE/OUTPA TIENT VISIT, [facility], [address] [place] [address], [id number] , [place] tel:[phone] [facility] [place] widespread pain (chief complaint) Displacement of cervical intervertebral disc without myelopathy 2 Will Siva. [address] [place], [place], [id number], [place]. tel:[phone] Specialist: [facility] [address] [place] [address], [address]. tel:[phone] OFFICE/OUTPA TIENT VISIT, [facility], [address] [place] [address], [id number] , [place] tel:[phone] [facility] [place] left neck pain (chief complaint)l eg pain/weakne ss (chief complaint) Degeneration of lumbar or lumbosacral intervertebral disc 2 Will Siva. [address] [place] [address], [id number], [place]. tel:[phone] Specialist: [facility] [address] [place] [address], [address]. tel:[phone] OFFICE/OUTPA TIENT VISIT, EST [facility], [address] [place] [address], [id number] , [place] tel:[phone] [facility] [place] right neck pain (chief complaint)r ight knee pain (chief complaint) Degeneration of lumbar or lumbosacral intervertebral disc 2 Will Siva. [address] [place] [address], [id number], [place]. tel:[phone] Specialist: [facility] [address] [place] [address], [id number]. tel:[phone] [facility], [address] [place] [address], [id number] , [place] tel:[phone] [facility] [place] Degeneration of lumbar or lumbosacral intervertebral disc 2 Will Siva. [address] [place], [place], [id number], [place]. tel:[phone] OFFICE/OUTPA TIENT VISIT, [facility], [address] [place] [address], [id number] , [place] tel:[phone] [facility] [place] neck pain (chief complaint)l eft leg pain (chief complaint) Degeneration of lumbar or lumbosacral intervertebral discDisplacemen t of cervical intervertebral disc without myelopathy 2 Will Siva. [address] [place] [address], [id number], [place]. tel:[phone] Specialist: [facility] [address] [place] [address], [address]. tel:[phone] OFFICE/OUTPA TIENT VISIT, EST [facility], [address] [place] [address], [id number] , [place] tel:[phone] [facility] Displacement of cervical intervertebral disc without myelopathy 1 Will Siva. [address] [place] [address], [id number], [place]. tel:[phone] Specialist: oBb [facility] [address], [address]. [phone] [facility], [address] [place] [address], [id number] , [place] tel:[phone] [facility] [place] No Information 1 No Information OFFICE/OUTPA TIENT VISIT, [facility], [address] [place] [address], [id number] , [place] tel:[phone] [facility] neck pain (chief complaint) Displacement of cervical intervertebral disc without myelopathy Sep-2 1 Will Siva. [address] [place] [address], [id number], [place]. tel:[phone] Specialist: Bob Perez [facility] [address] [place] [address], [id number]. [phone] [place] [address] [facility], [address] [place] [address], [id number] , [place] tel:[phone] [facility] [place] Degeneration of lumbar or lumbosacral intervertebral disc 1 Will Siva. [address] [place] [address], [id number], [place]. tel:[phone] OFFICE/OUTPA TIENT VISIT, [facility], [address] [place] [address], [id number] , [place] tel:[phone] [facility] neck and low back pain (chief complaint) Displacement of cervical intervertebral disc without myelopathyNeura lgia, neuritis, and radiculitis, unspecifiedDege neration of lumbar or lumbosacral intervertebral discSpasm of muscle 1 Will Siva. [address] [place], [place], [id number], [place]. tel:[phone] Specialist: [facility] [address], [address]. tel:[phone] OFFICE/OUTPA TIENT VISIT, [facility], [address] [place] [address], [id number] , [place] tel:[phone] [facility] [place] bilateral neck pain (chief complaint) Neuralgia, neuritis, and radiculitis, unspecifiedDisp lacement of cervical intervertebral disc without myelopathy 1 Will Siva. [address] [place], [place], [id number], [place]. tel:[phone] Specialist: Bob Perez [facility] [address], [address]. tel:[phone] OFFICE/OUTPA TIENT VISIT, [facility], [address] [place] [address], [id number] , [place] tel:[phone] [facility] neck pain (chief complaint) Displacement of cervical intervertebral disc without myelopathyNeura lgia, neuritis, and radiculitis, unspecified 1 Will Siva. [address] [place], [place], [id number], [place]. tel:[phone] Specialist: Bob Perez [facility] [address], [address]. tel:[phone] OFFICE/OUTPA TIENT VISIT, [facility], [address] [place] [address], [id number] , [place] tel:[phone] [facility] neck pain (chief complaint) Displacement of cervical intervertebral disc without myelopathyNeura lgia, neuritis, and radiculitis, unspecified 1 Will Siva. [address] [place] [address], [place], [id number], [place]. tel:[phone] Specialist: [facility] [address] [place] [address], [address]. tel:[phone] OFFICE/OUTPA TIENT VISIT, [facility], [address] [place] [address], [id number] , [place] tel:[phone] [facility] neck pain (chief complaint) Displacement of cervical intervertebral disc without myelopathyNeura lgia, neuritis, and radiculitis, unspecified Dec-2 1-201 0 Will Siva. [address] [place] [address], [id number], [place]. tel:[phone] Specialist: [facility] [address] [place] [address], [address]. tel:[phone] OFFICE/OUTPA TIENT VISIT, [facility], [address] [place] [address], [id number] , [place] tel:[phone] [facility] neck pain (chief complaint) Displacement of cervical intervertebral disc without myelopathyNeura lgia, neuritis, and radiculitis, unspecified Oct-2 0-201 0 Will Siva. [address] [place] [address], [id number], [place]. tel:[phone] Specialist: [facility] [address] [place] [address], [address]. tel:[phone] OFFICE/OUTPA TIENT VISIT, [facility], [address] [place] [address], [id number] , [place] tel:[phone] [facility] neck pain (chief complaint) Pain in thoracic spineDisplaceme nt of cervical intervertebral disc without myelopathy Sep-0 8-201 0 Will Siva. [address] [place], [place], [id number], [place]. tel:[phone] Specialist: [facility] [address], [place], [address]. tel:[phone] [facility], [address] [place] [address], [id number] , [place] [phone] [facility] Inj bilateral lumbar spine pain (chief complaint) CervicalgiaDisp lacement of cervical intervertebral disc without myelopathyPain in thoracic spine 0 Will Siva. [address] [place] [address], [id number], [place]. tel:[phone] OFFICE/OUTPA TIENT VISIT, EST [facility], [address] [place] [address], [id number] , [place] [phone] [facility] [place] neck pain (chief complaint) Displacement of cervical intervertebral disc without myelopathyCervi calgia 0 Will Siva. [address] [place] [address], [id number], [place]. tel:[phone] Specialist: [facility] [address] [place] [address], [address]. tel:[phone] OFFICE/OUTPA TIENT VISIT, EST [facility], [address] [place] [address], [id number] , [place] tel:[phone] [facility] [place] neck pain (chief complaint) CervicalgiaDisp lacement of cervical intervertebral disc without myelopathyPain in thoracic spine 0 Will Siva. [address] [place] [address], [id number], [place]. tel:[phone] Specialist: [facility] [address] [place] [address], [address]. tel:[phone] OFFICE/OUTPA TIENT VISIT, EST [facility], [address] [place] [address], [id number] , [place] tel:[phone] [facility] [place] neck pain (chief complaint) Displacement of cervical intervertebral disc without myelopathyPain in thoracic spineCervicalgi aCarpal tunnel syndrome Oct- 0 Will Siva. [address] [place], [place], [id number], [place]. tel:[phone] Specialist: [facility] [address] [facility] [address], [place], [address]. tel:[phone] OFFICE/OUTPA TIENT VISIT, EST [facility], [address] [place] [address], [id number] , [place] tel:[phone] [facility] [place] bilateral mid-back pain (chief complaint) Myalgia and myositis, unspecifiedPain in thoracic spineNeck sprain 0 Will Siva. [address] [place] [address], [id number], [place]. tel:[phone] [facility], [address] [place] [address], [id number] , [place] tel:[phone] [facility] No Information 0 No Information OFFICE/OUTPA TIENT VISIT, EST [facility], [address] [place] [address], [id number] , [place] tel:[phone] [facility] neck pain (chief complaint) Displacement of cervical intervertebral disc without myelopathyDegen eration of cervical intervertebral discCervicalgia Carpal tunnel syndrome 0 Will Siva. [address] [place] [address], [id number], [place]. tel:[phone] Specialist: [facility] [address] [facility] [address], [place], [address]. tel:[phone] [facility], [address] [place] [address], [id number] , [place] tel:[phone] [facility] neck pain (chief complaint) Displacement of cervical intervertebral disc without myelopathyDegen eration of cervical intervertebral discCervicalgia 9 Will Siva. [address] [place] [address], [id number], [place]. tel:[phone] [facility], [address] [place] [address], [id number] , tel:[phone] [facility] [place] No Information 9 Will Siva. [address] [place] [address], [id number], [place]. tel:[phone] OFFICE/OUTPA TIENT VISIT, EST [facility], [address] [place] [address], [id number] , [place] tel:[phone] [facility] neck pain (chief complaint)t horacic spine pain (chief complaint) Degeneration of cervical intervertebral discCervicalgia Spasm of muscleDisplacem ent of cervical intervertebral disc without myelopathy 9 Will Siva. [address] [place] [address], [id number], [place]. tel:[phone] Home Theater Specialist: ! Add QRC. [facility], [address] [place] [address], [id number] , tel:[phone] [facility] [place] No Information 9 No Information Family History Family Member Type Diagnosis Age At Onset Sister Problem (finding) Back Pain Mother Problem (finding) Back Pain Payers Payer name Insurance type Covered democrat ID Rossana mcclellan(s) Charliewilfredo [facility] Replacement [id number] Social History Type Description Quantity Date Captured [...] is not prescribed opioids due to several ENT PHYSICIAN violations. He is interested in repeating epidurals. His last epidural was about a year ago. He also had lumbar imaging a year ago that he will track down and present to [facility] before scheduling an epidural. States he willing left [facility] to taper off opioids and was [...] prescribed meds by PCP and would like [facility] to take over medications. Plans on transfer all injections or procedures to [facility]. Widespread pain Severity level i s [...] He is not prescribed opioid medications from [facility] d/t multiple ENT PHYSICIAN violations. Other medications provide 40% relief from pain, brings pain down from 9 to 6 out of 10. States receiving 80% relief with GAUDENCIO in radicular arm pain. He is here today regarding mistakes made during GAUDENCIO on 11/07. He has concerns that he has not been seen by a doctor since he reestablished at [facility]. States not being told to schedule another OV after injection to speak about results. He tries to walk a mile every day. He is also wanting [facility] to take over medication management. Widespread [...] He is not prescribed opioid medication from [facility] d/t multple ENT PHYSICIAN violations. Other medications provide 30-40% relief from [...] He was referred by Dr. Jo at [facility]. Pain started with progression of degenerative disc disorder. Pain symptoms were aggravated after partial discetomy in 2002. He had to stop working when pain became too intense in 2007. His cervical region is flattened d/t DDD. [facility] states risk outweighs benefits for another fusion for cerivcal region. Neck is worst pain with radicular left shoulder pain. He is interested in completing TPIs. He was a previous patient with [facility] was terminated d/t multiple ENT PHYSICIAN violation. He feels he was unfairly terminated, stating he did not know what the first two violations were. He currently doing PT at [facility] and is effective for muscle strengthening. His PCP is able to continue ordering PT. He has previously completed GAUDENCIO and LESI and states effective at relieving pain. GAUDENCIO was ineffective at relieving pain. Imaging was completed at [facility]. Medications:Oxycontin, Oxycodone Functional Status Date Functional [...]
== END 2023-05-01 08:13 | disposition home or self-care (01) ==
LOC: LONREF 08:12
PROVIDERS: PCP Family Medicine; Visit Provider Family Medicine
DX: E29.1 Testicular hypofunction (principal)
CPT/HCPCS: 84403

== ENCOUNTER 2023-11-19 10:08 | Outpatient (CLI) | payer OTHER, SELFPAY ==
--- OUTSIDE RECORDS SUMMARY | 2023-11-19 10:10 | XMS_ITS | Continuity of Care Document ---
Author Name Unknown Organization [facility] Address [address] [place] [address] Phone Care Team Providers Care Tonnage Compilation Clerk Name Role Phone Will Siva FISCHER Unavailable [...] EST Disabilty Reports Forms OFFICE/OUTPATIENT VISIT, EST INSTRUCTOR KINDERGARTEN LETTER Advance Directives Directive Yes / No Effective Date File Name No Information Encounters Encounter Description Practice Location Reason(s) For Visit Diagnoses Date Provider Providers Copied on Encounter [facility], [address] [place] [address], [id number] , [place] tel:[phone] [facility] Lamar No Information 2 Glen Paniagua. [address] [place] [address], [id number], [place]. tel:[phone] [facility], [address] [place] [address], [id number] , [place] tel:[phone] [facility] Other cervical disc degeneration, cervicothoracic region Sep-0 201 9 Eva Mcdowell. [address] [place] [address], [id number], [place]. tel:[phone] [place] [address] [facility], [address] [place] [address], [place], [id number] , [place] tel:[phone] [facility] Roxy Other cervical disc degeneration, cervicothoracic region Sep-0 9 Glen Paniagua. [address] [place], [place], [id number], [place]. tel:[phone] OFFICE/OUTPA TIENT VISIT, EST [facility], [address] [place] [address], [id number] , [place] tel:[phone] [facility] Lamar Back Pain (chief complaint)N maria m Pain (chief complaint) Other cervical disc degeneration, cervicothoracic regionPostlamin ectomy syndrome, not elsewhere classifiedOther intervertebral disc degeneration, lumbar regionOther spondylosis with myelopathy, lumbar region Kassie Roxanna. [address] [place] [address], [id number], [place]. tel:[phone] Specialist: Alec Weiss MD [facility] [address] Blalexander [address] [place] [address], [address]. tel:[phone] [facility], [address] [place] [address], [id number] , [place] [phone] [facility] Other intervertebral disc degeneration, lumbar region Maciasvivi Hernandez. [facility], [address] [facility] [address] [facility] [address], [address], [place]. tel:[phone] OFFICE/OUTPA TIENT VISIT, [facility], [address] [place] [address], [id number] , [place] tel:[phone] [facility] Lamar Back Pain (chief complaint)N maria m Pain (chief complaint) Postlaminectomy syndrome, not elsewhere classifiedOther spondylosis with myelopathy, lumbar regionOther cervical disc degeneration, cervicothoracic regionOther intervertebral disc degeneration, lumbar region Rasta Carter. [address] [place], [place], [id number], [place]. tel:[phone] Specialist: Alec Weiss MD [facility] [address] Gregg [facility] [address], [place], [address]. tel:[phone] [facility], [address] [place] [address], [id number] , [place] tel:[phone] [facility] Spondylolysis, cervicothoracic region 0 7 Kokayeff July. [address] [place] [address], [id number], [place]. tel:[phone] [place] [address] [facility], [address] [place] [address], [id number] , [place] tel:[phone] [facility] [place]ar Spondylolysis, cervicothoracic region Apr-2 0201 7 Van Overbeke Emma. [address] [place] [address], [id number], [place]. tel:[phone] [place] [address] [facility], [address] [place] [address], [id number] , [place] tel:[phone] [facility] Other spondylosis with myelopathy, lumbar region Apr- 9 7 Kokayeff July. [address] [place] [address], [id number], [place]. [phone] [place] [address] [facility], [address] [place] [address], [id number] , [place] tel:[phone] [facility] Lamar Myalgia Apr-0 5-201 7 Van Overbeke Emma. [address] [place] [address], [id number], [place]. tel:[phone] OFFICE/OUTPA TIENT VISIT, EST [facility], [address] [place] [address], [id number] , [place] tel:[phone] [facility] Roxy Neck pain (chief complaint)B ack Pain (chief complaint) Postlaminectomy syndrome, not elsewhere classifiedOther spondylosis with myelopathy, lumbar region Sep-0 6-201 7 Van Overbeke Emma. [address] [place] [address], [id number], [place]. tel:[phone] Specialist: [facility] [address]Jeremie Gregg [facility] [address], [place], [address]. tel:[phone] [facility], [address] [place] [address], [id number] , [place] tel:[phone] [facility] Other cervical disc degeneration, cervicothoracic region 7 Daly Metcalf. [address] [place] [address], [id number], [place]. [phone] [facility], [address] [place] [address], [id number] , [place] tel:[phone] [facility] Lamar Other cervical disc degeneration, cervicothoracic region Glen Paniagua. [address] [place] [address], [id number], [place]. tel:[phone] OFFICE/OUTPA TIENT VISIT, EST [facility], [address] [place] [address], [id number] , [place] tel:[phone] [facility] Lamar Widespread pain (chief complaint) MyalgiaOther cervical disc degeneration, unsp cervical regionOther intervertebral disc degeneration, lumbar regionPostlamin ectomy syndrome, not elsewhere classified 7 Rasta Carter. [address] [place] [address], [id number], [place]. tel:[phone] Specialist: Alec Weiss [facility] [address] [place] [address], [place], [address]. tel:[phone] [facility], [address] [place] [address], [id number] , [place] tel:[phone] [facility] Other cervical disc degeneration, unsp cervical region 7 Eva Mcdowell. [address] [place] [address], [id number], [place]. tel:[phone] OFFICE/OUTPA TIENT VISIT, EST [facility], [address] [place] [address], [id number] , [place] tel:[phone] [facility] Lamar Widespread pain (chief complaint) MyalgiaOther cervical disc degeneration, unspecified cervical regionOther intervertebral disc degeneration, lumbar regionPostlamin ectomy syndrome, not elsewhere classified Apr-1 7 Rasta Carter. [address] [place] [address], [id number], [place]. tel:[phone] Specialist: [facility] [address], [address]. [phone] [facility], [address] [place] [address], [id number] , [place] tel:[phone] [facility] Roxy Myalgia Apr-0 7 Rasta Carter. [address] [place] [address], [id number], [place]. tel:[phone] OFFICE/OUTPA TIENT VISIT, [facility], [address] [place] [address], [id number] , [place] tel:[phone] [facility] Widespread pain (chief complaint) MyalgiaOther cervical disc degeneration, unspecified cervical regionOther intervertebral disc degeneration, lumbar regionPostlamin ectomy syndrome, not elsewhere classified Mar-2 7 Rasta Carter. [address] [place] [address], [id number], [place]. tel:[phone] Specialist: [facility] De[address], [address]. [phone] [facility], [address] [place] [address], [id number] , [place] tel:[phone] [facility] chronic pain (chief complaint) Myalgia and myositis, unspecifiedDisp lacement of cervical intervertebral disc without myelopathy Apr-0 3 Glen Paniagua. [address] [place] [address], [id number], [place]. tel:[phone] OFFICE/OUTPA TIENT VISIT, [facility], [address] [place] [address], [id number] , [place] tel:[phone] [facility] Roxy widespread pain (chief complaint) Displacement of cervical intervertebral disc without myelopathyDegen eration of lumbar or lumbosacral intervertebral disc 3 Will Siva. [address] [place] [address], [id number], [place]. tel:[phone] Specialist: [facility] [address] [place] [address], [address]. tel:[phone] OFFICE/OUTPA TIENT VISIT, EST [facility], [address] [place] [address], [id number] , [place] tel: [phone] [facility] [place] widespread pain (chief complaint) Displacement of cervical intervertebral disc without myelopathyDegen eration of lumbar or lumbosacral intervertebral disc 3 Will Siva. [address] [place] [address], [id number], [place]. tel:[phone] Specialist: [facility] [address] [place] [address], [address]. tel:[phone] [facility], [address] [place] [address], [id number] , [place] tel:[phone] [facility] [place] No Information 2 No Information OFFICE/OUTPA TIENT VISIT, EST [facility], [address] [place] [address], [id number] , [place] tel:[phone] [facility] widespread pain (chief complaint) Displacement of cervical intervertebral disc without myelopathyDegen eration of lumbar or lumbosacral intervertebral disc 2 Will Siva. [address] [place] [address], [id number], [place]. tel:[phone] Specialist: [facility] [address] [place] [address], [address]. tel:[phone] OFFICE/OUTPA TIENT VISIT, [facility], [address] [place] [address], [id number] , [place] tel:[phone] [facility] Lamar widespread pain (chief complaint) Displacement of cervical intervertebral disc without myelopathyDegen eration of lumbar or lumbosacral intervertebral disc 2 No Paperhanger Contractor: [facility] [address] [place] [address], [address]. [phone] [facility], [address] [place], [place], [id number] , [place] tel:[phone] [facility] Lamar Displacement of cervical intervertebral disc without myelopathy 2 Will Siva. [address] [place], [place], [id number], [place]. tel:[phone] OFFICE/OUTPA TIENT VISIT, EST [facility], [address] [place] [address], [id number] , [place] tel:[phone] [facility] widespread pain (chief complaint) Spasm of muscleDisplacem ent of cervical intervertebral disc without myelopathyDegen eration of lumbar or lumbosacral intervertebral disc 2 No Paperhanger Contractor: [facility] [address] [place] [address], [address]. tel:[phone] OFFICE/OUTPA TIENT VISIT, [facility], [address] [place] [address], [id number] , [place] tel:[phone] [facility] Roxy widespread pain (chief complaint) Displacement of cervical intervertebral disc without myelopathy 2 Will Siva. [address] [place], [place], [id number], [place]. tel:[phone] Specialist: [facility] [address] [place] [address], [address]. [phone] OFFICE/OUTPA TIENT VISIT, [facility], [address] [place] [address], [id number] , [place] tel:[phone] [facility] Lamar left neck pain (chief complaint)l eg pain/weakne ss (chief complaint) Degeneration of lumbar or lumbosacral intervertebral disc 2 Will Siva. [address] [place] [address], [id number], [place]. tel:[phone] Specialist: [facility] [address] [place] [address], [address]. tel:[phone] OFFICE/OUTPA TIENT VISIT, EST [facility], [address] [place] [address], [id number] , [place] tel:[phone] [facility] [place] right neck pain (chief complaint)r ight knee pain (chief complaint) Degeneration of lumbar or lumbosacral intervertebral disc 2 Will Siva. [address] [place] [address], [id number], [place]. tel:[phone] Specialist: [facility] [address] [place] [address], [id number]. tel:[phone] [facility], [address] [place] [address], [id number] , [place] tel:[phone] [facility] Degeneration of lumbar or lumbosacral intervertebral disc 2 Will Siva. [address] [place], [place], [id number], [place]. tel:[phone] OFFICE/OUTPA TIENT VISIT, [facility], [address] [place] [address], [id number] , [place] tel:[phone] [facility] neck pain (chief complaint)l eft leg pain (chief complaint) Degeneration of lumbar or lumbosacral intervertebral discDisplacemen t of cervical intervertebral disc without myelopathy 2 Will Siva. [address] [place] [address], [id number], [place]. tel:[phone] Specialist: [facility] [address] [place] [address], [address]. tel:[phone] OFFICE/OUTPA TIENT VISIT, EST [facility], [address] [place] [address], [id number] , [place] tel:[phone] [facility] Displacement of cervical intervertebral disc without myelopathy 1 Will Siva. [address] [place] [address], [id number], [place]. tel:[phone] Specialist: [facility] [address], [address]. [phone] [facility], [address] [place] [address], [id number] , [place] tel:[phone] [facility] Lamar No Information 1 No Information OFFICE/OUTPA TIENT VISIT, [facility], [address] [place] [address], [id number] , [place] tel:[phone] [facility] neck pain (chief complaint) Displacement of cervical intervertebral disc without myelopathy Sep-2 1 Will Siva. [address] [place] [address], [id number], [place]. tel:[phone] Specialist: Bob Perez [facility] [address] [place] [address], [address]. [phone] [place] [address] [facility], [address] [place] [address], [id number] , [place] tel:[phone] [facility] Lamar Degeneration of lumbar or lumbosacral intervertebral disc 1 Will Siva. [address] [place] [address], [id number], [place]. tel:[phone] OFFICE/OUTPA TIENT VISIT, [facility], [address] [place] [address], [id number] , [place] tel:[phone] [facility] neck and low back pain (chief complaint) Displacement of cervical intervertebral disc without myelopathyNeura lgia, neuritis, and radiculitis, unspecifiedDege neration of lumbar or lumbosacral intervertebral discSpasm of muscle 1 Will Siva. [address] [place], [place], [id number], [place]. tel:[phone] Specialist: [facility] [address], [address]. tel:[phone] OFFICE/OUTPA TIENT VISIT, [facility], [address] [place] [address], [id number] , [place] tel:[phone] [facility] [place] bilateral neck pain (chief complaint) Neuralgia, neuritis, and radiculitis, unspecifiedDisp lacement of cervical intervertebral disc without myelopathy 1 Will Siva. [address] [place], [place], [id number], [place]. tel:[phone] Specialist: Bob Perez [facility] [address], [address]. tel:[phone] OFFICE/OUTPA TIENT VISIT, [facility], [address] [place] [address], [id number] , [place] tel:[phone] [facility] neck pain (chief complaint) Displacement of cervical intervertebral disc without myelopathyNeura lgia, neuritis, and radiculitis, unspecified 1 Will iSva. [address] [place], [place], [id number], [place]. tel:[phone] Specialist: Bob Perez [facility] [address], [address]. tel:[phone] OFFICE/OUTPA TIENT VISIT, [facility], [address] [place] [address], [id number] , [place] tel:[phone] [facility] neck pain (chief complaint) Displacement of cervical intervertebral disc without myelopathyNeura lgia, neuritis, and radiculitis, unspecified 1 Will Siva. [address] [place] [address], [place], [id number], [place]. tel:[phone] Specialist: [facility] [address] [place] [address], [address]. tel:[phone] OFFICE/OUTPA TIENT VISIT, [facility], [address] [place] [address], [id number] , [place] tel:[phone] [facility] neck pain (chief complaint) Displacement of cervical intervertebral disc without myelopathyNeura lgia, neuritis, and radiculitis, unspecified Dec-2 1-201 0 Will Siva. [address] [place] [address], [id number], [place]. tel:[phone] Specialist: [facility] [address] [place] [address], [address]. tel:[phone] OFFICE/OUTPA TIENT VISIT, [facility], [address] [place] [address], [id number] , [place] tel:[phone] [facility] neck pain (chief complaint) Displacement of cervical intervertebral disc without myelopathyNeura lgia, neuritis, and radiculitis, unspecified Oct-2 0-201 0 Will Siva. [address] [place] [address], [id number], [place]. tel:[phone] Specialist: [facility] [address] [place] [address], [address]. tel:[phone] OFFICE/OUTPA TIENT VISIT, [facility], [address] [place] [address], [id number] , [place] tel:[phone] [facility] neck pain (chief complaint) Pain in thoracic spineDisplaceme nt of cervical intervertebral disc without myelopathy Sep-0 8-201 0 Will Siva. [address] [place], [place], [id number], [place]. tel:[phone] Specialist: [facility] [address], [place], [address]. tel:[phone] [facility], [address] [place] [address], [id number] , [place] [phone] [facility] Inj bilateral lumbar spine pain (chief complaint) CervicalgiaDisp lacement of cervical intervertebral disc without myelopathyPain in thoracic spine 0 Will Siva. [address] [place] [address], [id number], [place]. tel:[phone] OFFICE/OUTPA TIENT VISIT, EST [facility], [address] [place] [address], [id number] , [place] [phone] [facility] Roxy neck pain (chief complaint) Displacement of cervical intervertebral disc without myelopathyCervi calgia 0 Will Siva. [address] [place] [address], [id number], [place]. tel:[phone] Specialist: [facility] [address] [place] [address], [address]. tel:[phone] OFFICE/OUTPA TIENT VISIT, EST [facility], [address] [place] [address], [id number] , [place] tel:[phone] [facility] Roxy neck pain (chief complaint) CervicalgiaDisp lacement of cervical intervertebral disc without myelopathyPain in thoracic spine 0 Will Siva. [address] [place] [address], [id number], [place]. tel:[phone] Specialist: [facility] [address] [place] [address], [address]. tel:[phone] OFFICE/OUTPA TIENT VISIT, EST [facility], [address] [place] [address], [id number] , [place] tel:[phone] [facility] Roxy neck pain (chief complaint) Displacement of cervical intervertebral disc without myelopathyPain in thoracic spineCervicalgi aCarpal tunnel syndrome Oct- 0 Will Siva. [address] [place], [place], [id number], [place]. tel:[phone] Specialist: [facility] EYolanda [facility] [address], [place], [address]. tel:[phone] OFFICE/OUTPA TIENT VISIT, EST [facility], [address] [place] [address], [id number] , [place] tel:[phone] [facility] Lamar bilateral mid-back pain (chief complaint) Myalgia and myositis, unspecifiedPain in thoracic spineNeck sprain 0 Will Siva. [address] [place] [address], [id number], [place]. tel:[phone] [facility], [address] [place] [address], [id number] , [place] tel:[phone] [facility] No Information 0 No Information OFFICE/OUTPA TIENT VISIT, EST [facility], [address] [place] [address], [id number] , [place] tel:[phone] [facility] neck pain (chief complaint) Displacement of cervical intervertebral disc without myelopathyDegen eration of cervical intervertebral discCervicalgia Carpal tunnel syndrome 0 Will Siva. [address] [place] [address], [id number], [place]. tel:[phone] Specialist: [facility] [facility] [address], [place], [address]. tel:[phone] [facility], [address] [place] [address], [id number] , [place] tel:[phone] [facility] neck pain (chief complaint) Displacement of cervical intervertebral disc without myelopathyDegen eration of cervical intervertebral discCervicalgia 9 Will Siva. [address] [place] [address], [id number], [place]. tel:[phone] [facility], [address] [place] [address], [id number] , tel:[phone] [facility] [place]ar No Information 9 Will Siva. [address] [place] [address], [id number], [place]. tel:[phone] OFFICE/OUTPA TIENT VISIT, EST [facility], [address] [place] [address], [id number] , [place] tel:[phone] [facility] neck pain (chief complaint)t horacic spine pain (chief complaint) Degeneration of cervical intervertebral discCervicalgia Spasm of muscleDisplacem ent of cervical intervertebral disc without myelopathy 9 Will Siva. [address] [place] [address], [id number], [place]. tel:[phone] Agriculture Extension Specialist: ! Add QRC. [facility], [address] [place] [address], [id number] , tel:[phone] [facility] Roxy No Information 9 No Information Family History Family Member Type Diagnosis Age At Onset Sister Problem (finding) Back Pain Mother Problem (finding) Back Pain Payers Payer name Insurance type Covered libertarian ID Rossana mcclellan(s) Charliewilfredo [facility] Replacement [id number] Social History Type Description Quantity Date Captured [...] Neck Pain Duration: chroni c. Back Pain (comments) Yony is h ere for a followup. He is not prescribed opioids due to several [employer] violations. He is interested in repeating epidurals. His last epidural was about a year ago. He also had lumbar imaging a year ago that he will track down and present to [facility] before scheduling an epidural. States he willing left [facility] to taper off opioids and was rx'ed Suboxone by Dr. Hopson. He also plans to taper off the Suboxone in the future. Back Pain Duration: chroni c. The problem is stable. It occurs persistently. Location of pain is lower back, neck and right shoulder. Pain is radiated to the right thigh.The patient describes the pain as an ache and sharp. Symptoms are aggravated by bending, lifting, lying/rest, housework and prolonged positioning. Symptoms are relieved by ice, rest, sitting, changing positions and standing. Back Pain Duration: chroni c. Neck pain (comments) Patient is here for [...] prescribed meds by PCP and would like [facility] to take over medications. Plans on transfer all injections or procedures to [facility]. Neck pain The problem is s evere. [...] include ice, massage, narcotic analgesics and rest. Widespread pain (comments) Ed is here for a followup. He is not prescribed opioid medications from [facility] d/t multiple CORD MAKER violations. Other medications provide 40% relief from pain, brings pain down from 9 to 6 out of 10. States receiving 80% relief with GAUDENCIO in radicular arm pain. He is here today regarding mistakes made during GAUDENCIO on 11/07. He has concerns that he has not been seen by a doctor since he reestablished at [facility]. States not being told to schedule another OV after injection to speak about results. He tries to walk a mile every day. He is also wanting [facility] to take over medication management. Widespread pain Severity level i s 6. [...] fatigue, fever and incontinence (urinary). Widespread pain Severity level i s 5 [...] He is not prescribed opioid medication from [facility] d/t multple CORD MAKER violations. Other medications provide 30-40% relief from [...] He was referred by Dr. Jo at [facility]. Pain started with progression of degenerative disc disorder. Pain symptoms were aggravated after partial discetomy in 2002. He had to stop working when pain became too intense in 2007. His cervical region is flattened d/t DDD. [facility] states risk outweighs benefits for another fusion for cerivcal region. Neck is worst pain with radicular left shoulder pain. He is interested in completing TPIs. He was a previous patient with [facility] was terminated d/t multiple CORD MAKER violation. He feels he was unfairly terminated, stating he did not know what the first two violations were. He currently doing PT at [facility] and is effective for muscle strengthening. His PCP is able to continue ordering PT. He has previously completed GAUDENCIO and LESI and states effective at relieving pain. GAUDENCIO was ineffective at relieving pain. Imaging was completed at [facility]. Medications:Oxycontin, Oxycodone Functional Status Date Functional [...]
--- OUTSIDE RECORDS SUMMARY | 2023-11-19 10:10 | XMS_ITS | Continuity of Care Document ---
Author Name Unknown Organization [facility] Address [address] [place] [address] Phone Care Team Providers Care Registrar Museum Name Role Phone Merary Grover NP Unavailable Unavailable Medications Medication Instructions Dosage Effective Dates (start - stop) Status Comments citalopram 40 mg tablet take 1 tablet (40MG) by oral route every day 40 MG - Active lisinopril 20 mg tablet take 1 tablet (20MG) by oral route every day 20 MG - Active omeprazole 20 mg capsule,delayed release take 1 capsule (20MG) by oral route every day before a meal 20 MG - Active glipizide 5 mg tablet take 0.5 Tablet (2.5MG) by ORAL route every day before meals 2.5 MG - Active metformin 1,000 mg tablet take 1 tablet (1000MG) by oral route 2 times every day with morning and evening meals 1000 MG - Active Soma 350 mg tablet take 1 tablet (350MG ) by oral route 3 times every day and at bedtime 350 MG - Active OxyContin 30 mg tablet,extended release take 1 tablet (30MG) by ORAL route 2 times every day - Active oxycodone 5 mg tablet take 1 - 2 Tablet (5MG) by oral route every 6 hours as needed for pain 5 MG - Active Procedures Procedure Date Offic/outpt E&m New Mod-hi 45 3 Current Med Dosages Verified & Documente d Patient Non Tobacco User Patient Screened for Alco Screen for depression not Pain Assessment And Follo QA DONE Advance Directives Directive Yes / No Effective Date File Name No Information Encounters Encounter Description Practice Location Reason(s) For Visit Diagnoses Date Provider Providers Copied on Encounter Offic/outpt E&m New Mod-hi 45 [facility], [address] [facility] [address], [place], [place], [id number], [place] tel:[phone] [facility] No Information Lenore Reagan. [address] [place], [address]. tel:[phone] Referring Provider: REFERRAL SELF, BASIM. Family History Family Member Type Diagnosis Age At Onset No Information Payers Payer name Insurance type Covered constitution party ID Authoriza tion(s) No Information Social History Type Description Quantity Date Captured Comments Alcohol Use Details No Caffeine Use Details Unknown Tobacco Use Status No Information Smoking Status Never Smoker Non-Smoking Tobacco Use Details : No Details Available : No Details Available Sex Male Chief Complaint And Reason For Visit No Information Reason For Referral Reason For Referral No Information History Of Present Illness Encounter Date Complaint History Of Prese nt Illness No Information Functional Status Date Functional Assessmen t No Information Instructions Date Instruction Additional Infor mation No Information Assessments Type Assessment Date No Information Patient Care Teams Name Effective Dates (start - stop) Status Members No Information
--- NOTE | 2023-11-19 11:52 | W.ANESCHARGE ---
Anesthesia Charges Start Date/Time Anesthesia Start Date: 11/19/23 Anesthesia Start Time: 11:40 Stop Date/Time Anesthesia Stop Date: 11/19/23 Anesthesia Stop Time: 12:05
--- NOTE | 2023-11-19 12:10 | W.ANESCHARGE ---
Anesthesia Charges Start Date/Time Anesthesia Start Date: 11/19/23 Anesthesia Start Time: 11:40 Stop Date/Time Anesthesia Stop Date: 11/19/23 Anesthesia Stop Time: 11:05
--- NOTE | 2023-11-19 12:13 | W.ANESCHARGE ---
Anesthesia Charges Start Date/Time Anesthesia Start Date: 11/19/23 Anesthesia Start Time: 10:40 Stop Date/Time Anesthesia Stop Date: 11/19/23 Anesthesia Stop Time: 11:05
--- NOTE | 2023-11-19 12:15 | W.ANESCHARGE ---
Anesthesia Charges Start Date/Time Anesthesia Start Date: 11/19/23 Anesthesia Start Time: 10:40 Stop Date/Time Anesthesia Stop Date: 11/19/23 Anesthesia Stop Time: 11:05
== END 2023-11-19 10:09 | disposition home or self-care (01) ==
LOC: OP CLINIC 10:08
PROVIDERS: PCP Family Medicine; Visit Provider Surgery
DX: Z12.11 Encounter for screening for malignant neoplasm of colon (principal); K62.1 Rectal polyp
CPT/HCPCS: 00811; 45385; 88305; J2704

== ENCOUNTER 2024-04-22 11:35 | Outpatient (CLI) | payer OTHER, SELFPAY ==
--- OUTSIDE RECORDS SUMMARY | 2024-04-22 11:38 | XMS_ITS | Referral Summary ---
Author Organization [facility] Address [address] [place] [address] Care Team Providers Care Aircraft Technician Name Role Phone Elsewhere, Pcp Primary Care Provider Unavailabl e Source Comments Patient records contain information from all sites at [facility]. For routine questions regarding patient records, call [phone] during business hours, M-F 8:00 AM - 5:00 PM Central Time. Record requests for emergency care only can be directed to [phone] at any time.[facility] Allergies No known active allergies Medications losartan (COZAAR) 50 mg tablet Take 50 mg by mouth daily. Active atenolol (TENORMIN) 25 mg tablet Take 1 tablet (25 mg total) by mouth daily for 10 days. 10 tablet 9 Active citalopram (CeleXA) 40 mg tablet Take 40 mg by mouth daily. Active omeprazole (PriLOSEC) [address] capsule Take 20 mg by mouth every morning before breakfast. Active atorvastatin (LIPITOR) 10 mg tablet Take 10 mg by mouth daily. Active glipiZIDE (GLUCOTROL) 10 mg tablet Take 10 mg by mouth 2 (two) times a day before breakfast and dinner. Active metFORMIN (GLUCOPHAGE) 1,000 mg tablet Take 1,000 mg by mouth 2 (two) times a day with meals. Active insulin glargine 100 unit/mL (3 mL) injection Inject 40 Units under the skin at bedtime. Active buPROPion (WELLBUTRIN SR) 150 mg 12 hr tablet Take 150 mg by mouth 2 (two) times a day. Active cloNIDine (CATAPRES) 0.1 mg tablet Take 0.1 mg by mouth daily. 0 9 Active glucosamine-cho ndroitin (GLUCOSAMINE-CH ONDROITIN) 500-400 mg per capsule Take 1 capsule by mouth daily. 5 Active lisinopril (PRINIVIL,ZESTR IL) 20 mg tablet Take 1 tablet by mouth daily. 3 Active tiZANidine (ZANAFLEX) 2 mg tablet Take 2 mg by mouth every evening. 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 Not Elsewhere Classified Pain Shoulder Right Laminectomy Lumbar Status Post Pain Low Back Unspecified Arthroplasty Total Knee Replacement Status Post Right Social History Tobacco Use Types Packs/Day Years Used Date Smoking Tobacco: Never Smokeless Tobacco: Never Alcohol Use Standard Drinks/Week Comments Yes 0 (1 standard drink = 0.6 oz pur e alcohol) occasionally Nutrition Answer Date Recorded Nutrition: EVOO Fat Source Unknown 08/30 Nutrition: Servings of Fruits/Vegetables per Day Not on file 08/30/2020 Dental Answer Date Recorded Dental: Regular Dentist Unknown 08/30/19 21 Sex and Gender Information Value Date Recorded Sex Assigned at Not on file Legal Sex Male 11:13 AM [employer]EL[employer] Gender Identity Not on file Sexual Orientation Not on file Last Filed Vital Signs Vital Sign Reading Time Taken Comments Blood Pressure 119/80 10/28/2022 12:30 AM CDT Pulse 77 10/27/2022 11:30 PM CDT Temperature 37.2 ??C (99 ??F) 10/28/2022 12:30 AM CDT Respiratory Rate 20 10/28/2022 12:30 AM CDT Oxygen Saturation 97% 10/28/2022 12:30 AM CDT Inhaled Oxygen Concentration - - Weight 105 kg (230 lb 13.2 oz) 10/27/2022 8:56 P M CDT Height 180.3 cm (5' 11) 10/27/2022 8:56 PM CDT Body Mass Index 32.19 10/27/2022 8:56 PM CDT Plan of Treatment Not on file Medical Devices Implanted Type Area Percussion Instrument Tuner Device Identifier Shelf Expiration Date Model / Serial / Lot Hardware E.G. Pins/Screws/R ods Hardware e.g. pins/screws/ rods Right: Shoulder Procedures Procedure Name Priority Date/Time Associated Diagnosis Comments BASIC METABOLIC PANEL, S/P STAT 10/27/2022 9:42 PM CDT from Last 3 Months or Most Recently Relevant to Health Maintenance Results * (ABNORMAL) Basic Metabolic Panel (10/27/2022 9:42 PM CDT) Pathologist [facility] Potassium, P 3.4(L) 3.6 - 5.2 mmol/L 10/27/2022 10:15 PM CDT NPRG Sodium, P 134(L) 135 - 145 mmol/L 10/27/2022 10:15 PM CDT NPRG Chloride, P 93(L) 98 - 107 mmol/L 10/27/2022 10:15 PM CDT NPRG Bicarbonate, P 29 22 - 29 mmol/L 10/27/2022 10:15 PM CDT NPRG Anion Gap, P 12 7 - 15 10/27/2022 10:15 PM CDT NPRG BUN (Blood Urea Nitrogen), P 19 8 - 24 mg/dL 10/27/2022 10:15 PM CDT NPRG Creatinine 0.80 0.74 - 1.35 mg/dL 10/27/2022 10:15 PM CDT NPRG Estimated GFR (eGFR) >90 >=60 mL/min/BSA 10/27/2022 10:15 PM CDT NPRG Comment: Estimated GFR calculated using the 2020 CKD_EPI creatinine equation. Calcium, Total, P 9.6 8.8 - 10.2 mg/dL 10/27/2022 10:15 PM CDT NPRG Glucose, P 223(H) 70 - 140 mg/dL 10/27/2022 10:15 PM CDT NPRG Blood (Blood, Venous) 10/27/2022 9:42 PM CDT 10/27/2022 9:45 PM CDT us Titus R Park M.D. LAB BLOOD ADD-ON Final Resul t [facility] [address] [place] [address], [facility] NPRG [facility] [address] [place] [address] from Last 3 Months or Most Recently Relevant to Health Maintenance Insurance [employer] Care Teams Aircraft Technician Relationship Specialty Start Date End Date Elsewhere, Pcp PCP - General Family Medicine 09/05/17
--- OUTSIDE RECORDS SUMMARY | 2024-04-22 11:38 | XMS_ITS ---
Author Organization [facility] Address [address] [place] [address] Care Team Providers Care Casino Change Attendant Name Role Phone Unavailable Unavailable Unavailable Surgery Details Not on file Complications Check Surgery Details section. Procedure Estimated Blood Loss Check Surgery Details section. Procedure Findings Check Surgery Details section. Procedure Specimens Taken Check Surgery Details section.
--- OUTSIDE RECORDS SUMMARY | 2024-04-22 11:38 | XMS_ITS | Clinical Summary ---
Author Organization [facility] Address [address] [place] [address] Care Team Providers Care Chute Man Name Role Phone Elsewhere, Pcp Primary Care Provider Unavailabl e Source Comments Patient records contain information from all sites at [facility]. For routine questions regarding patient records, call [phone] during business hours, M-F 8:00 AM - 5:00 PM Central Time. Record requests for emergency care only can be directed to [phone] at any time.[facility] Allergies No known active allergies Medications losartan [...] on file Legal Sex Male 11:13 AM [employer] Gender Identity Not on file Sexual Orientation [...] 10/27/2022 8:56 PM CDT Plan of Treatment Health Maintenance Due Date Last Done Comments CT Colonography 1956 Cologuard 1956 Colonoscopy 1956 Colorectal Cancer Screening 1956 Diabetic Office Visit with F oot Exam 1956 Dilated Eye Exam 1956 FIT 1956 Lipid (Cholesterol) Screening 1956 Office Visit for Blood Press ure Check / Re-check 1956 Urine Albumin 1956 Pneumococcal vaccine (65+ ye ars) (2 of 2 - PCV) 09/14/2022 09/14/2021, 12/07/2008 Depression Screening (Annual PHQ-2) 07/09/2023 Fall Risk Screen (Annual) 07/09/2023 Hemoglobin A1C 09/17/2023 03/19/2023, 01/07, 07/17/2019 COVID-19 Vaccine (4 - 2023-2 5 season) 2024 08/05/2021, 10/12/2020, 09/21/2020 Creatinine Level (Kidney Fun ction Test) 03/20/2024 03/20/2023, 10/27/2022, 01/28/2020, Additional history exists Potassium Level 03/20/2024 03/20/2023, 10/08, 07/16/2018 Sodium Level 03/20/2024 03/20/2023, 10/08, 07/16/2018 Influenza Vaccine (#1) 2024 , 05/01/2020, 04/09/2018, Additional history exists DTaP,Tdap,and Td Vaccines (3 - Td or Tdap) 10/23/2028 10/23/2018, 12/07/2008, 09/20/2004 Hepatitis C Screening Completed 06/02/2008 Zoster Vaccines Completed 09/27/2020, 03/17/2019 Medical Devices Implanted Type Area Scallop Cutter Machine Device Identifier Shelf Expiration Date Model / Serial / Lot Hardware E.G. Pins/Screws/R ods Hardware e.g. pins/screws/ rods Right: Shoulder Procedures Procedure Name Priority Date/Time Associated Diagnosis Comments BASIC METABOLIC PANEL, S/P STAT 10/27/2022 9:42 PM CDT from Last 3 Months or Most Recently Relevant to Health Maintenance Results * (ABNORMAL) Basic Metabolic Panel (10/27/2022 9:42 PM CDT) Potassium, P 3.4(L) 3.6 - 5.2 mmol/L [...] PM CDT 10/27/2022 9:45 PM CDT us Tacho Blake M.D. LAB BLOOD ADD-ON Final Resul t [facility] [address] [place] [address], [facility] NPRG [facility] [address] [place] [address] from Last 3 Months or Most Recently Relevant to Health Maintenance Insurance [employer] Care Teams Chute Man Relationship Specialty Start Date End Date Elsewhere, Pcp PCP - General Family Medicine 09/05/17
--- OUTSIDE RECORDS SUMMARY | 2024-04-22 11:38 | XMS_ITS | Continuity of Care Document ---
Author Organization [facility] maren Address [address] [facility] [place] [address] Phone Care Team Providers Care Senior Master Scheduler Name Role Phone Will Siva FISCHER Unavailable [...] ph Omnipaque 240 20ml INJ TRIGGER POINT, 1/2 MUSCL Injection, bupivicaine [...] EST Disabilty Reports Forms OFFICE/OUTPATIENT VISIT, EST OFFICE PROFESSIONALS LETTER Advance Directives Directive Yes / No Effective Date File Name No Information Encounters Encounter Description Practice Location Reason(s) For Visit Diagnoses Date Provider Providers Copied on Encounter [facility], [address] [place] [address], [id number] , [place] tel:[phone] [facility] [place] No Information 2 Glen Lyonsw. [address] [place] [address], [id number], [place]. tel:[phone] [facility], [address] [place] [address], [id number] , [place] tel:[phone] [facility] Other cervical disc degeneration, cervicothoracic region Sep-0 9 Eva Mcdowell. [address] [place] [address], [id number], [place]. tel:[phone] [facility], [address] [place] [address], [id number] , [place] tel:[phone] [facility] [place] Other cervical disc degeneration, cervicothoracic region Sep-0 9 Glen Paniagua. [address] [place], [place], [id number], [place]. tel:[phone] OFFICE/OUTPA TIENT VISIT, EST [facility], [address] [place] [address], [id number] , [place] tel:[phone] [facility] [place] Back Pain (chief complaint)N maria m Pain (chief complaint) Other cervical disc degeneration, cervicothoracic regionPostlamin ectomy syndrome, not elsewhere classifiedOther intervertebral disc degeneration, lumbar regionOther spondylosis with myelopathy, lumbar region Kassie Mcknight. [address] [place], [place], [id number], [place]. tel:[phone] Specialist: Alec Weiss MD [facility] [address], [place], [address]. tel:[phone] [facility], [address] [place] [address], [id number] , [place] [phone] [facility] Other intervertebral disc degeneration, lumbar region Maciasmagdy Hernandez. [facility], [address] [facility] [address], [address], [place]. tel:[phone] OFFICE/OUTPA TIENT VISIT, EST [facility], [address] [place] [address], [id number] , [place] tel:[phone] [facility] [place] Back Pain (chief complaint)N maria m Pain (chief complaint) Postlaminectomy syndrome, not elsewhere classifiedOther spondylosis with myelopathy, lumbar regionOther cervical disc degeneration, cervicothoracic regionOther intervertebral disc degeneration, lumbar region Rasta Carter. [address] [place], [place], [id number], [place]. tel:[phone] Specialist: Alec Weiss MD [facility] [address] [facility] [address], [place], [address]. 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 [address] [place] [address], [id number], [place]. tel:[phone] [place] [address] [facility], [address] [place] [address], [id number] , [place] tel:[phone] [facility] [place] Spondylolysis, cervicothoracic region Apr-2 0-201 7 Van Chi Emma. [address] [place] [address], [id number], [place]. tel:[phone] [place] [address] [facility], [address] [place] [address], [id number] , [place] tel:[phone] [facility] [place] Other spondylosis with myelopathy, lumbar region Apr- 9- 7 Eva July. [address] [place] [address], [id number], [place]. tel:[phone] [place] [address] [facility], [address] [place] [address], [id number] , [place] tel:[phone] [facility] [place] Myalgia Apr-0 5-201 7 Rasta Barraganbedilshad Emma. [address] [place] [address], [id number], [place]. tel:[phone] OFFICE/OUTPA TIENT VISIT, EST [facility], [address] [place] [address], [id number] , [place] tel:[phone] [facility] [place] Neck pain (chief complaint)B ack Pain (chief complaint) Postlaminectomy syndrome, not elsewhere classifiedOther spondylosis with myelopathy, lumbar region Sep-0 6-201 7 Van Overbeke Emma. [address] [place] [address], [id number], [place]. tel:[phone] Specialist: [facility] Jose Juan Gregg [facility] [address], [place], [address]. tel:[phone] [facility], [address] [place] [address], [id number] , [place] tel:[phone] [facility] Other cervical disc degeneration, cervicothoracic region Kauffman Tea. [address] [place] [address], [id number], [place]. tel:[phone] [facility], [address] [place] [address], [id number] , [place] tel:[phone] [facility] [place] Other cervical disc degeneration, cervicothoracic region Glen Paniagua. [address] [place] [address], [id number], [place]. tel:[phone] OFFICE/OUTPA TIENT VISIT, EST [facility], [address] [place] [address], [id number] , [place] tel:[phone] [facility] [place] Widespread pain (chief complaint) MyalgiaOther cervical disc degeneration, unsp cervical regionOther intervertebral disc degeneration, lumbar regionPostlamin ectomy syndrome, not elsewhere classified Rasta Carter. [address] [place] [address], [id number], [place]. tel:[phone] Specialist: Alec Weiss [facility] Jose Juan Gregg [address], [address]. tel:[phone] [facility], [address] [place] [address], [id number] , [place] [phone] [facility] [place] Other cervical disc degeneration, unsp cervical region Eva Mcdowell. [address] [place] [address], [id number], [place]. tel:[phone] OFFICE/OUTPA TIENT VISIT, EST [facility], [address] [place] [address], [id number] , [place] tel:[phone] [facility] [place] Widespread pain (chief complaint) MyalgiaOther cervical disc degeneration, unspecified cervical regionOther intervertebral disc degeneration, lumbar regionPostlamin ectomy syndrome, not elsewhere classified Apr-1 7 Rasta Carter. [address] [place] [address], [id number], [place]. tel:[phone] Specialist: [facility] 5 [facility]The [facility] [address], [place], [address]. [phone] [facility], [address] [place] [address], [id number] , [place] tel:[phone] [facility] [place] Myalgia Apr-0 7 Rasta Carter. [address] [place] [address], [id number], [place]. tel:[phone] OFFICE/OUTPA TIENT VISIT, [facility], [address] [place] [address], [id number] , [place] tel:[phone] [facility] Widespread pain (chief complaint) MyalgiaOther cervical disc degeneration, unspecified cervical regionOther intervertebral disc degeneration, lumbar regionPostlamin ectomy syndrome, not elsewhere classified Mar-2 7 Rasta Carter. [address] [place] [address], [id number], [place]. tel:[phone] Specialist: [facility] Deon BhattiThe [facility] [address], [place], [address]. tel:[phone] [facility], [address] [place] [address], [id number] , [place] [phone] [facility] chronic pain (chief complaint) Myalgia and myositis, unspecifiedDisp lacement of cervical intervertebral disc without myelopathy Apr-0 3 Glen Paniagua. [address] [place] [address], [id number], [place]. tel:[phone] OFFICE/OUTPA TIENT VISIT, [facility], [address] [place] [address], [id number] , [place] tel:[phone] [facility] [place] widespread pain (chief complaint) Displacement of cervical intervertebral disc without myelopathyDegen eration of lumbar or lumbosacral intervertebral disc 3 Will Siva. [address] [place] [address], [id number], [place]. tel:[phone] Specialist: [facility] [address] [place] [address], [address]. tel:[phone] OFFICE/OUTPA TIENT VISIT, [facility], [address] [place] [address], [id number] , [place] tel:[phone] [facility] widespread pain (chief complaint) Displacement of cervical intervertebral disc without myelopathyDegen eration of lumbar or lumbosacral intervertebral disc 3 Will Siva. [address] [place] [address], [id number], [place]. tel:[phone] Specialist: [facility] [address] [place] [address], [id number]. tel:[phone] [facility], [address] [place] [address], [id number] , [place] tel:[phone] [facility] [place] No Information 2 No Information OFFICE/OUTPA TIENT VISIT, [facility], [address] [place] [address], [id number] , [place] tel:[phone] [facility] [place] widespread pain (chief complaint) Displacement of cervical intervertebral disc without myelopathyDegen eration of lumbar or lumbosacral intervertebral disc 2 Will Siva. [address] [place] [address], [id number], [place]. tel:[phone] Specialist: [facility] [address] [place] [address], [address]. tel:[phone] OFFICE/OUTPA TIENT VISIT, [facility], [address] [place] [address], [id number] , [place] tel:[phone] [facility] [place] widespread pain (chief complaint) Displacement of cervical intervertebral disc without myelopathyDegen eration of lumbar or lumbosacral intervertebral disc 2 No Environmental Intern: [facility] [address] [place] [address], [address]. tel:[phone] [facility], [address] [place] [address], [id number] , [place] tel:[phone] [facility] [place] Displacement of cervical intervertebral disc without myelopathy 2 Will Siva. [address] [place] [address], [id number], [place]. tel:[phone] OFFICE/OUTPA TIENT VISIT, EST [facility], [address] [place] [address], [id number] , [place] tel:[phone] [facility] [place] widespread pain (chief complaint) Spasm of muscleDisplacem ent of cervical intervertebral disc without myelopathyDegen eration of lumbar or lumbosacral intervertebral disc 2 No Environmental Intern: [facility] [address] [place] [address], [id number]. tel:[phone] OFFICE/OUTPA TIENT VISIT, [facility], [address] [place] [address], [id number] , [place] tel:[phone] [facility] [place] widespread pain (chief complaint) Displacement of cervical intervertebral disc without myelopathy 2 Will Siva. [address] [place], [id number], [place]. [phone] Specialist: [facility] [address] [place] [address], [address]. [phone] OFFICE/OUTPA TIENT VISIT, EST [facility], [address] [place] [address], [id number] , [place] tel:[phone] [facility] [place] left neck pain (chief complaint)l eg pain/weakne ss (chief complaint) Degeneration of lumbar or lumbosacral intervertebral disc 2 Will Siva. [address] [place] [address], [id number], [place]. tel:[phone] Specialist: [facility] [address] [place] [address], [address]. tel:[phone] OFFICE/OUTPA TIENT VISIT, EST [facility], [address] [place] [address], [id number] , [place] tel:[phone] [facility] [place] right neck pain (chief complaint)r ight knee pain (chief complaint) Degeneration of lumbar or lumbosacral intervertebral disc 2 Will Siva. [address] [place] [address], [id number], [place]. tel:[phone] Specialist: [facility] [address] [place] [address], [address]. tel:[phone] [facility], [address] [place] [address], [id number] , [place] tel:[phone] [facility] [place] Degeneration of lumbar or lumbosacral intervertebral disc 2 Will Siva. [address] [place] [address], [id number], [place]. tel:[phone] OFFICE/OUTPA TIENT VISIT, [facility], [address] [place] [address], [id number] , [place] tel:[phone] [facility] [place] neck pain (chief complaint)l eft leg pain (chief complaint) Degeneration of lumbar or lumbosacral intervertebral discDisplacemen t of cervical intervertebral disc without myelopathy 2 Will Siva. [address] [place] [address], [id number], [place]. tel:[phone] Specialist: [facility] [address] [place] [address], [address]. tel:[phone] OFFICE/OUTPA TIENT VISIT, [facility], [address] [place] [address], [id number] , [place] tel:[phone] [facility] [place] neck pain (chief complaint) Displacement of cervical intervertebral disc without myelopathy 1 Will Siva. [address] [place], [id number], [place]. tel:[phone] Specialist: Bob Perez [facility] [address], [address]. tel:[phone] [place] [address] [facility], [address] [place] [address], [id number] , [place] tel:[phone] [facility] [place] No Information 1 No Information OFFICE/OUTPA TIENT VISIT, [facility], [address] [place] [address], [id number] , [place] [phone] [facility] neck pain (chief complaint) Displacement of cervical intervertebral disc without myelopathy Mar- 1 Will Siva. [address] [place] [address], [id number], [place]. tel:[phone] Specialist: Bob Perez [facility] [address] [place] [address], [address]. tel:[phone] [place] [address] [facility], [address] [place] [address], [id number] , [place] [phone] [facility] [place] Degeneration of lumbar or lumbosacral intervertebral disc 1 Will Siva. [address] [place] [address], [id number], [place]. tel:[phone] OFFICE/OUTPA TIENT VISIT, [facility], [address] [place] [address], [id number] , [place] [phone] [facility] neck and low back pain (chief complaint) Displacement of cervical intervertebral disc without myelopathyNeura lgia, neuritis, and radiculitis, unspecifiedDege neration of lumbar or lumbosacral intervertebral discSpasm of muscle 1 Will Siva. [address] [place], [place], [id number], [place]. tel:[phone] Specialist: [facility] [address], [address]. tel:[phone] OFFICE/OUTPA TIENT VISIT, [facility], [address] [place] [address], [id number] , [place] tel:[phone] [facility] [place] bilateral neck pain (chief complaint) Neuralgia, neuritis, and radiculitis, unspecifiedDisp lacement of cervical intervertebral disc without myelopathy 1 Will Siva. [address] [place], [place], [id number], [place]. tel:[phone] Specialist: Bob Perez [facility] [address], [address]. tel:[phone] OFFICE/OUTPA TIENT VISIT, [facility], [address] [place] [address], [id number] , [place] tel:[phone] [facility] neck pain (chief complaint) Displacement of cervical intervertebral disc without myelopathyNeura lgia, neuritis, and radiculitis, unspecified 1 Will Siva. [address] [place], [place], [id number], [place]. tel:[phone] Specialist: Bob Perez [facility] [address], [address]. tel:[phone] OFFICE/OUTPA TIENT VISIT, [facility], [address] [place] [address], [id number] , [place] tel:[phone] [facility] neck pain (chief complaint) Displacement of cervical intervertebral disc without myelopathyNeura lgia, neuritis, and radiculitis, unspecified 1 Will Siva. [address] [place] [address], [id number], [place]. tel:[phone] Specialist: [facility] [address] [facility], [place], [address]. tel:[phone] OFFICE/OUTPA TIENT VISIT, [facility], [address] [place] [address], [id number] , [place] tel:[phone] [facility] neck pain (chief complaint) Displacement of cervical intervertebral disc without myelopathyNeura lgia, neuritis, and radiculitis, unspecified Dec-2 1-201 0 Will Siva. [address] [place] [address], [id number], [place]. tel:[phone] Specialist: [facility] [address] [facility], [place], [address]. tel:[phone] OFFICE/OUTPA TIENT VISIT, [facility], [address] [place] [address], [id number] , [place] [phone] [facility] neck pain (chief complaint) Displacement of cervical intervertebral disc without myelopathyNeura lgia, neuritis, and radiculitis, unspecified Oct-2 0-201 0 Will Siva. [address] [place] [address], [id number], [place]. tel:[phone] Specialist: [facility] [address] [facility], [place], [address]. tel:[phone] OFFICE/OUTPA TIENT VISIT, [facility], [address] [place] [address], [id number] , [place] tel:[phone] [facility] neck pain (chief complaint) Pain in thoracic spineDisplaceme nt of cervical intervertebral disc without myelopathy Sep-0 8-201 0 Will Siva. [address] [place], [place], [id number], [place]. tel:[phone] Specialist: [facility] [address], [place], [address]. tel:[phone] [facility], [address] [place] [address], [id number] , [place] [phone] [facility] [place] bilateral lumbar spine pain (chief complaint) CervicalgiaDisp lacement of cervical intervertebral disc without myelopathyPain in thoracic spine 0 Will Siva. [address] [place] [address], [id number], [place]. tel:[phone] OFFICE/OUTPA TIENT VISIT, EST [facility], [address] [place] [address], [id number] , [place] tel:[phone] [facility] [place] neck pain (chief complaint) Displacement of cervical intervertebral disc without myelopathyCervi calgia 0 Will Siva. [address] [place] [address], [id number], [place]. tel:[phone] Specialist: [facility] [address] [place] [address], [address]. tel:[phone] OFFICE/OUTPA TIENT VISIT, [facility], [address] [place] [address], [id number] , [place] tel:[phone] [facility] [place] neck pain (chief complaint) CervicalgiaDisp lacement of cervical intervertebral disc without myelopathyPain in thoracic spine 0 Will Siva. [address] [place] [address], [id number], [place]. tel:[phone] Specialist: [facility] [address], [place], [address]. tel:[phone] OFFICE/OUTPA TIENT VISIT, [facility], [address] [place] [address], [id number] , [place] tel:[phone] [facility] [place] neck pain (chief complaint) Displacement of cervical intervertebral disc without myelopathyPain in thoracic spineCervicalgi aCarpal tunnel syndrome 0 Will Siva. [address] [place], [place], [id number], [place]. tel:[phone] Specialist: [facility] [address] BhattiThe [facility] [address], [place], [address]. tel:[phone] OFFICE/OUTPA TIENT VISIT, EST [facility], [address] [place] [address], [id number] , [place] tel:[phone] [facility] [place] bilateral mid-back pain (chief complaint) Myalgia and myositis, unspecifiedPain in thoracic spineNeck sprain 0 Will Siva. [address] [place] [address], [id number], [place]. tel:[phone] [facility], [address] [place] [address], [id number] , [place] tel:[phone] [facility] [place] No Information Sep- 0 No Information OFFICE/OUTPA TIENT VISIT, [facility], [address] [place] [address], [id number] , [place] tel:[phone] [facility] neck pain (chief complaint) Displacement of cervical intervertebral disc without myelopathyDegen eration of cervical intervertebral discCervicalgia Carpal tunnel syndrome 0 Will Siva. [address] [place] [address], [id number], [place]. tel:[phone] Specialist: [facility] E[address] Gre[address], [address]. tel:[phone] [facility], [address] [place] [address], [id number] , [place] tel:[phone] [facility] neck pain (chief complaint) Displacement of cervical intervertebral disc without myelopathyDegen eration of cervical intervertebral discCervicalgia 9 Will Siva. [address] [place] [address], [id number], [place]. tel:[phone] [facility], [address] [place] [address], [id number] , tel:[phone] [facility] [place] No Information 9 Will Siva. [address] [place], [place], [id number], [place]. tel:[phone] OFFICE/OUTPA TIENT VISIT, EST [facility], [address] [place] [address], [id number] , [place] [phone] [facility] neck pain (chief complaint)t horacic spine pain (chief complaint) Degeneration of cervical intervertebral discCervicalgia Spasm of muscleDisplacem ent of cervical intervertebral disc without myelopathy 9 Glen Paniagua. [address] [place] [address], [id number], [place]. 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 Add QRC. [facility], [address] [place] [address], [id number] , [phone] [facility] [place] No Information 9 No Information Family History Family Member Type Diagnosis Age At Onset Sister Problem (finding) Back Pain Mother Problem (finding) Back Pain Payers Payer name Insurance type Covered green party ID Rossana mcclellan(s) Charliewilfredo [facility] Replacement [id number] Social History Type Description Quantity Date Captured [...] is not prescribed opioids due to several EMISSION TECHNICIAN violations. He is interested in repeating epidurals. His last epidural was about a year ago. He also had lumbar imaging a year ago that he will track down and present to [facility] before scheduling an epidural. States he willing left [facility] to taper off opioids and [...] prescribed meds by PCP and would like [facility] to take over medications. Plans on transfer all injections or procedures to [facility]. Widespread pain Severity level i s [...] He is not prescribed opioid medications from [facility] d/t multiple EMISSION TECHNICIAN violations. Other medications provide 40% relief from pain, brings pain down from 9 to 6 out of 10. States receiving 80% relief with GAUDENCIO in radicular arm pain. He is here today regarding mistakes made during GAUDENCIO on 11/07. He has concerns that he has not been seen by a doctor since he reestablished at [facility]. States not being told to schedule another OV after injection to speak about results. He tries to walk a mile every day. He is also wanting [facility] to take over medication management. Widespread [...] He is not prescribed opioid medication from [facility] d/t multple EMISSION TECHNICIAN violations. Other medications provide 30-40% relief from [...] He was referred by Dr. Jo at [facility]. Pain started with progression of degenerative disc disorder. Pain symptoms were aggravated after partial discetomy in 2002. He had to stop working when pain became too intense in 2007. His cervical region is flattened d/t DDD. [facility] states risk outweighs benefits for another fusion for cerivcal region. Neck is worst pain with radicular left shoulder pain. He is interested in completing TPIs. He was a previous patient with [facility] was terminated d/t multiple EMISSION TECHNICIAN violation. He feels he was unfairly terminated, stating he did not know what the first two violations were. He currently doing PT at [facility] and is effective for muscle strengthening. His PCP is able to continue ordering PT. He has previously completed GAUDENCIO and LESI and states effective at relieving pain. GAUDENCIO was ineffective at relieving pain. Imaging was completed at [facility]. Medications:Oxycontin, Oxycodone Functional Status Date Functional [...]
--- OUTSIDE RECORDS SUMMARY | 2024-04-22 11:40 | XMS_ITS | Referral Summary ---
Author Organization [facility] Address [address] [place] [address] Care Team Providers Care Crayon Grader Name Role Phone Alec Weiss MD Unavailable [phone] Obed Jo MD Primary Care Provider Herminio Leigh PA-C Unavailable [phone] Encounters Date Type Department Care Team Description 03/14/2024 Travel 03/14/2024 11:30 AM CDT Office Visit [facility] [place] [address] [facility] [address] [place] [address] Herminio Leigh PA-C S/P cervical spinal fusion (Primary Dx) 03/14/2024 10:50 AM CDT Ancillary Procedure [facility] [address] [place] [address] Bobby Farooq CNP S/P cervical spinal fusion 03/13/2024 Travel from Last 3 Months Allergies No known active allergies Medications Medication Sig Dispensed Refills Start Date End Date Status ONE TOUCH II SYSTEM KITIndications:Enco unter for long-term (current) use of other medications,Dysmeta bolic syndrome X bid prn 1 0 03/29/2007 Active LOSARTAN POTASSIUM PO Take 100 mg by mouth daily Active CITALOPRAM HYDROBROMIDE PO Take 40 mg by mouth daily Active ATORVASTATIN CALCIUM PO Take 10 mg by mouth daily Active GLIPIZIDE PO Take 10 mg by mouth 2 times daily (before meals) Active METFORMIN HCL PO Take 1,000 mg by mouth 2 times daily (with meals) Active buprenorphine HCl-naloxone HCl (SUBOXONE) 8-2 MG per filmIndications:Prince n syndrome, chronic Hold medication until 24 hours after last dose of oxycodone then resume 1 film under tongue daily 01/28/2020 Active OZEMPIC, 2 MG/DOSE, 8 MG/3ML pen Inject 2 mg Subcutaneous every 7 days 02/05/2023 Active chlorthalidone (HYGROTON) 25 MG tablet Take 25 mg by mouth daily 12/18/2022 Active fluticasone (FLONASE) 50 MCG/ACT nasal spray Wheeler 2 sprays into both nostrils as needed 02/18/2023 Active oxyBUTYnin (DITROPAN) 5 MG tablet Take 5 mg by mouth 2 times daily 01/22/2023 Active LANTUS SOLOSTAR 100 UNIT/ML soln Inject 40 Units Subcutaneous At Bedtime 01/31/2023 Active omeprazole (PRILOSEC) [address] capsule Take 40 mg by mouth daily 09/05/2022 Active fish oil-omega-3 fatty acids 1000 MG capsule Take 2 g by mouth daily Active multivitamin w/minerals (MULTI-VITAMIN) tablet Take 1 tablet by mouth daily Active glucosamine-chondro itin 500-400 MG CAPS per capsule Take 1 capsule by mouth daily Active potassium 99 MG TABS Take 1 tablet by mouth daily Active magnesium 250 MG tablet Take 1 tablet by mouth daily Active naproxen sodium 220 MG capsule Take 220 mg by mouth 2 times daily as needed Active Vitamin D3 (VITAMIN D, CHOLECALCIFEROL,) 25 mcg (1000 units) tablet Take 25 mcg by mouth daily Active modafinil (PROVIGIL) 200 MG tablet Take 200 mg by mouth daily Active tiZANidine (ZANAFLEX) 4 MG tabletIndications:H istory of total right knee replacement Take 1 tablet (4 mg) by mouth 2 times daily as needed for muscle spasms 40 tablet 1 03/21/2023 Active Active Problems Problem Noted Date Diagnosed Date Cervical vertebral fusion 03/19/2023 S/P total knee arthroplasty 01/26/2020 S/P lumbar laminectomy 07/16/2019 Cervical spondylosis with myelopathy 09/01/2015 Recurrent laryngeal nerve palsy 09/01/2015 S/P cervical spinal fusion 09/01/2015 TYPE 1 DIABETES, HBA1C GOAL < 7% 05/08/2010 CARDIOVASCULAR SCREENING; LDL GOAL LESS THAN 100 05/08/2010 Essential hypertension, benign 04/07/2007 Type 1 diabetes mellitus 04/07/2007 Overview: Problem list name updated by automated process. Provider to review Dysmetabolic syndrome X 03/29/2007 Immunizations Name Administration Dates Next Due TD,PF 7+ (Tenivac) 09/20/2004 Social History Tobacco Use Types Packs/Day Years Used Date Smoking Tobacco: Never Smokeless Tobacco: Never Tobacco Cessation:Counseling Given: Not Answered Alcohol Use Standard Drinks/Week Comments No 0 (1 standard drink = 0.6 oz pur e alcohol) PHQ-2 Answer Date Recorded PHQ-2 Score 0 09/12/2023 Adolescent Education Answer Date Record ed Getting School Help Needed Not on file 04/03 Sex and Gender Information Value Date Recorded Sex Assigned at Not on file Gender Identity Not on file Sexual Orientation Not on file Last Filed Vital Signs Vital Sign Reading Time Taken Comments Blood Pressure 124/66 03/14/2024 11:18 AM CDT Pulse 87 03/14/2024 11:18 AM CDT Temperature 36.5 ??C (97.7 ??F) 04/25/2023 9:56 AM CD T Respiratory Rate 20 03/21/2023 7:29 AM CDT Oxygen Saturation 97% 03/14/2024 11:18 AM CDT Inhaled Oxygen Concentration - - Weight 99.8 kg (220 lb) 03/14/2024 11:18 AM CDT Height 180.3 cm (5' 11) 06/13/2023 1:52 PM STORE CUSTODIAN Body Mass Index 30.68 06/13/2023 1:52 PM STORE CUSTODIAN Plan of Treatment Not on file Medical Devices Implanted Type Area Cloud Services Architect Device Identifier Shelf Expiration Date Model / Serial / Lot Bone Cement Simplex Full Dose 6191-1-001 Implanted:Qt y: 1 on 01/26/2020 by Dane Patel MD at [facility] Cement, Bone Right: Knee [employer] [id number] 09/05/2021 6191-1-00 1 / / [id number] Bone Cement Simplex W/Tobramycin 6197-9-001 Implanted:Qt y: 1 on 01/26/2020 by Dane Patel MD at [facility] Cement, Bone Right: Knee [employer] [id number] 10/06/2020 6197-9-00 1 / / [id number] Imp Newton Arthrex Bio-Swiveloc k 4.54g65wq [id number]-[id number]-[id number] Implanted:Qt y: 2 on 12/25/2017 by Donald Arreguin MD at [facility] Metallic Hardware/An chor Right: Shoulder [employer] 08/08/2019 [id number] C-2 / / [id number] Imp Screw Infinity Spine Hhayffynaa68 mmx3.5mm [id number] - [id number] Implanted:Qt y: 4 on 03/19/2023 by Ric Yee MD at [facility] Metallic Hardware/An chor N/A: Posterior Cervical [employer] [id number] / / [id number] Imp Screw Infinity Spine Dgfeujqrwm72 mmx3.5mm [id number] - [id number] Implanted:Qt y: 2 on 03/19/2023 by Ric Yee MD at [facility] Metallic Hardware/An chor N/A: Posterior Cervical [employer] [id number] / / [id number] Imp Set Screw Medtronic Infinity [id number] - [id number] Implanted:Qt y: 6 on 03/19/2023 by Ric Yee MD at [facility] Metallic Hardware/An chor N/A: Posterior Cervical [employer]-DANEK [id number] / / [id number] Jose Spnl 40mm 3.5mm Pcut - [id number] Implanted:Qt y: 2 on 03/19/2023 by Ric Yee MD at [facility] Metallic Hardware/An chor N/A: Posterior Cervical [employer] [id number] / / [id number] Imp Comp Patella Howm Tri 35 10mm 5551-L-350 Implanted:Qt y: 1 on 01/26/2020 by Dane Patel MD at [facility] Total Joint Component/I nsert Right: Knee [employer] [id number] 07/20/2024 5551-L-35 0 / / [id number] Imp Insert Tibial Howm Tri Size 6 09mm 5532-G-609 Implanted:Qt y: 1 on 01/26/2020 by Dane Patel MD at [facility] Total Joint Component/I nsert Right: Knee [employer] 08/01/2023 5532-G-60 9-E / / [id number] Imp Comp Fem Strk Triathln Ps Rt 5 5515-F-502 Implanted:Qt y: 1 on 01/26/2020 by Dane Patel MD at [facility] Total Joint Component/I nsert Right: Knee [employer] [id number] 04/30/2024 5515-F-50 2 / / [id number] Imp Baseplate Tibial Strk Tri Sz 6 5521-B-600 Implanted:Qt y: 1 on 01/26/2020 by Dane Patel MD at [facility] Total Joint Component/I nsert Right: Knee [employer] [id number] 07/28/2024 5521-B-60 0 / / [id number] Procedures Procedure Name Priority Date/Time Associated Diagnosis Comments XR CERVICAL SPINE 2/3 VIEWS Routine 03/14/2024 11:01 AM CDT S/P cervical spinal fusion BASIC METABOLIC PANEL Add-On 03/20/2023 7:31 AM CDT HEMOGLOBIN A1C Add-On 03/19/2023 11:59 AM CDT CL AFF A.M.A. LIPID PANEL Routine 03/30/2007 8:35 AM CDT Benign Hypertension from Last 3 Months or Most Recently Relevant to Health Maintenance Results * XR Cervical Spine 2/3 Views (03/14/2024 11:01 AM CDT) Anatomical Region Laterality Modality Spine Computed Radiogr aphy Impressions 03/14/2024 4:31 PM CDT IMPRESSION: No gross cervical vertebral body height loss is identified. Straightening of the normal cervical lordosis, which may be positional. Minimal broad dextroconvex curvature of the lower cervical spine/cervicothoracic junction. Alignment otherwise appears normal. ACDF changes C6-C7, as before. Bilateral posterior fusion hardware spanning C4-C6 with posterior decompression changes, as before. No definite findings of hardware loosening or failure identified. There is up to moderate disc space narrowing C4-C5 and C5-C6 and mild to moderate disc space narrowing C3-C4 with marginal endplate osteophytes. Degenerative changes of the median atlantoaxial joint. The prevertebral soft tissues appear normal in thickness. On the open-mouth odontoid view, no evidence for displaced fracture of the base of the odontoid process, and the lateral masses of C1 and C2 appear symmetric. NIRAJ BLUE MD SYSTEM ID: [id number] Narrative 03/14/2024 4:31 PM CDT XR CERVICAL SPINE 2/3 VIEWS 03/14/2024 11:01 AM HISTORY: Status post cervical spinal fusion COMPARISON: Cervical spine radiographs dated 09/12/2023. Procedure Note Niraj Blue MD - 03/14/2024 XR CERVICAL SPINE 2/3 VIEWS 03/14/2024 11:01 AM HISTORY: Status post cervical spinal fusion COMPARISON: Cervical spine radiographs dated 09/12/2023. IMPRESSION: No gross cervical vertebral body height loss is identified. Straightening of the normal cervical lordosis, which may be positional. Minimal broad dextroconvex curvature of the lower cervical spine/cervicothoracic junction. Alignment otherwise appears normal. ACDF changes C6-C7, as before. Bilateral posterior fusion hardware spanning C4-C6 with posterior decompression changes, as before. No definite findings of hardware loosening or failure identified. There is up to moderate disc space narrowing C4-C5 and C5-C6 and mild to moderate disc space narrowing C3-C4 with marginal endplate osteophytes. Degenerative changes of the median atlantoaxial joint. The prevertebral soft tissues appear normal in thickness. On the open-mouth odontoid view, no evidence for displaced fracture of the base of the odontoid process, and the lateral masses of C1 and C2 appear symmetric. NIRAJ BLUE MD SYSTEM ID: [id number] Bobby Farooq CNP IMG DIAGNOSTIC IMAGI NG ORDERABLES * (ABNORMAL) Basic metabolic panel (03/20/2023 7:31 AM CDT) Sodium 138 136 - 145 mmol/L 03/20/2023 8:31 AM CDT LABORATORY Potassium 3.9 3.4 - 5.3 mmol/L 03/20/2023 8:31 AM CDT LABORATORY Chloride 98 98 - 107 mmol/L 03/20/2023 8:31 AM CDT LABORATORY Carbon Dioxide (CO2) 30(H) 22 - 29 mmol/L 03/20/2023 8:31 AM CDT LABORATORY Anion Gap 10 7 - 15 mmol/L 03/20/2023 8:31 AM CDT LABORATORY Urea Nitrogen 13.9 8.0 - 23.0 mg/dL 03/20/2023 8:31 AM CDT LABORATORY Creatinine 0.82 0.67 - 1.17 mg/dL 03/20/2023 8:31 AM CDT LABORATORY Calcium 9.5 8.8 - 10.2 mg/dL 03/20/2023 8:31 AM CDT LABORATORY Glucose 126(H) 70 - 99 mg/dL 03/20/2023 8:31 AM CDT LABORATORY GFR Estimate >90 >60 mL/min/1.7 3m2 03/20/2023 8:31 AM CDT LABORATORY Blood STRUCTURE OF RIGHT UPPER LIMB / Unknown Venipuncture / Unknown 03/20/2023 7:31 AM CDT 03/20/2023 7:36 AM CDT Meli Skaggs PA-C LAB - BLOOD ORDER [facility] [address] [facility] Lab (1st floor, no room number) [place] [address], [facility] [phone] * (ABNORMAL) Hemoglobin A1c (03/19/2023 11:59 AM CDT) Hemoglobin A1C 7.3(H) <5.7 % 03/20/2023 3:02 PM CDT [facility] Comment: Normal <5.7% Prediabetes 5.7-6.4% ?? Diabetes 6.5% or higher Note: Adopted from ADA consensus guidelines. Blood STRUCTURE OF RIGHT UPPER LIMB / Unknown Venipuncture / Unknown 03/19/2023 11:59 AM CDT 03/19/2023 12:01 PM CDT Meli Skaggs PA-C LAB - BLOOD ORDER [facility] [address] Lab (1st floor, no room number) [place] [address], [facility] [phone] * (ABNORMAL) A.M.A. LIPID PANEL (03/30/2007 8:35 AM CDT) [facility] Signature Cholesterol 158 0 - 200 mg/dL [facility] Comment: LDL Cholesterol is the primary guide to therapy: LDL-cholesterol goal in high risk patients is <100 mg/dL and in very high risk patients is <70 mg/dL. The NCEP recommends further evaluation of: patients with cholesterol <200 mg/dL if additional risk factors are present, cholesterol >240 mg/dL, triglycerides >150 mg/dL, or HDL <40 mg/dL. Triglycerides 108 0 - 150 mg/dL [facility] HDL Cholesterol 38(L) 40 - 110 mg/dL [facility] LDL Cholesterol Calculated 99 0 - 129 mg/dL [facility] Comment: LDL Cholesterol is the primary guide to therapy: LDL-cholesterol goal in high risk patients is <100 mg/dL and in very high risk patients is <70 mg/dL. VLDL-Cholesterol 22 0 - 30 mg/dL [facility] Cholesterol/HDL Ratio 4.2 0.0 - 5.0 [facility] 03/30/2007 8:35 AM CDT 03/30/2007 8:40 AM CDT Kendell Skelton MD LABORATORY [facility] from Last 3 Months or Most Recently Relevant to Health Maintenance Advance Directives For more information, please contact: [phone] * Full Code (Latest Code Status on File) Date Activated Date Inactivated Comments 03/19/2023 7:51 PM 03/21/2023 3:03 PM All basic an d advanced life-sustaining interventions are performed as appropriate Question Answer Comments Code status determined by: Unable to dis cuss and no AD/POLST on file; continue PREVIOUSLY ORDERED code status * Full Code Date Activated Date Inactivated Comments 01/27/2020 9:09 AM 01/28/2020 1:26 PM All basic an d advanced life-sustaining interventions are performed as appropriate Question Answer Comments Code status determined by: Discussion with patie nt/ legal decision maker * Full Code Date Activated Date Inactivated Comments 01/26/2020 4:47 PM 01/27/2020 9:09 AM All basic an d advanced life-sustaining interventions are performed as appropriate Question Answer Comments Code status determined by: Unable to det ermine; FULL CODE until documents or legal decision maker available * Full Code Date Activated Date Inactivated Comments 07/17/2019 7:10 AM 01/26/2020 10:19 AM Full code Question Answer Comments Code status determined by: Other (please alexsandra herring) * Full Code Date Activated Date Inactivated Comments 07/16/2019 7:00 PM 07/17/2019 7:10 AM Full code Question Answer Comments Code status determined by: Other (please alexsandra herring) Care Teams Crayon Grader Relationship Specialty Start Date End Date Obed Jo MD [facility] [address] [facility] [address] [place] [address] PCP - General Family Practice 07/28/15 Alec Weiss MD [facility] [address] [address] [place] [address] Neurology 07/28/15 Herminio Leigh PA-C [address] [facility] [address] [place] [address] Assigned Neuroscience Provider 03/31/24
--- OUTSIDE RECORDS SUMMARY | 2024-04-22 11:40 | XMS_ITS | Encounter Summary ---
Author Organization [facility] Address [address] [place] [address] Care Team Providers Care Linux Kernel Engineer Name Role Phone Alec Weiss MD Unavailable [phone] Obed Jo MD Primary Care Provider [phone] Ric Yee MD Unavailable [phone] Encounter Details Date Type Department Care Team (Latest Contact Info) Description 03/14/2024 Travel Social History Tobacco Use Types Packs/Day Years Used Date Smoking Tobacco: Never Smokeless Tobacco: Never Alcohol Use Standard Drinks/Week Comments No 0 (1 standard drink = 0.6 oz pur e alcohol) PHQ-2 Answer Date Recorded PHQ-2 Score 0 09/12/2023 Adolescent Education Answer Date Record ed Getting School Help Needed Not on file 04/03 Sex and Gender Information Value Date Recorded Sex Assigned at Not on file Gender Identity Not on file Sexual Orientation Not on file documented as of this encounter Plan of Treatment Not on file documented as of this encounter Visit Diagnoses Not on filedocumented in this encounter Care Teams Linux Kernel Engineer Relationship Specialty Start Date End Date Obed Jo MD [facility] [address] [id number] PCP - General Family Practice 07/28/15 Alec Weiss MD [facility] [address] [id number] Neurology 07/28/15 Ric Yee MD [address] [place] [address] Assigned Neuroscience Provider 02/17/23 03/30/24 documented as of this encounter
--- OUTSIDE RECORDS SUMMARY | 2024-04-22 11:40 | XMS_ITS | Encounter Summary ---
Author Organization [facility] Address [address] [place] [address] Care Team Providers Care Soft Boarder Name Role Phone Alec Weiss MD Unavailable [phone] Obed Jo MD Primary Care Provider Ric Yee MD Unavailable Reason for Visit * Diagnostic Imaging XR (Routine) - Pending Review Specialty Diagnoses / Procedures Referred By Contac t Referred To Contact Radiology. Diagnoses S/P cervical spinal fusion Procedures XR Cervical Spine 2/3 Views Bobby Farooq C[place] [address] Referral ID Status Reason Start Date Expiration Date V isits Requested Visits Authorized [id number] Pending Review 09/12/2023 09/11/2024 1 1 Encounter Details Date Type Department Care Team (Latest Contact Info) Description 03/14/2024 10:50 AM CDT Ancillary Procedure [address] [place] [id number] Bobby Farooq C[place] [address] S/P cervical spinal fusion Social History Tobacco Use Types Packs/Day Years [...] on file documented as of this encounter Procedures Procedure Name Priority Date/Time Associated Diagnosis Comments XR CERVICAL SPINE 2/3 VIEWS Routine 03/14/2024 11:01 AM CDT S/P cervical spinal fusion documented in this encounter Results * XR Cervical Spine 2/3 Views [...] appear symmetric. NIRAJ BLUE MD SYSTEM ID: [id number] Narrative 03/14/2024 4:31 PM CDT XR CERVICAL [...] masses of C1 and C2 appear symmetric. NIARJ BLUE MD SYSTEM ID: [id number] Bobby Farooq SPRING [employer]ER IMG DIAGNOSTIC IMAGI NG ORDERABLES documented in this encounter Visit Diagnoses Diagnosis S/P cervical spinal fusion Arthrodesis status documented in this encounter Care Teams Soft Boarder Relationship Specialty Start Date End Date Obed Jo MD [facility] [address] [address] PCP - General Family Practice 07/28/[address] [facility] [address] [address] Neurology 07/28/15 Ric Yee MD [address] [place] [id number] Assigned Neuroscience Provider 02/17/23 03/30/24 documented as of this encounter
--- OUTSIDE RECORDS SUMMARY | 2024-04-22 11:40 | XMS_ITS | Encounter Summary ---
Author Organization [place] Address [address] [facility] [place] [address] Care Team Providers Care Christian Counselor Name Role Phone Alec Weiss MD Unavailable [phone] Obed Jo MD Primary Care Provider Ric Yee MD Unavailable [phone] Reason for Visit * Reason Comments Surgical Followup 1 year follow-up Encounter Details Date Type Department Care Team (Late st Contact Info) Description 03/14/2024 11:30 AM CDT Office Visit [facility] [address] [place] [address] Herminio Leigh PA-C [address] [facility] [address] [address] S/P cervical spinal fusion (Primary Dx) Social History Tobacco Use Types Packs/Day Years [...] on file documented as of this encounter Last Filed Vital Signs Vital Sign Reading Time Taken Comments Blood Pressure 124/66 03/14/2024 11:18 AM CDT Pulse 87 03/14/2024 11:18 AM CDT Temperature - - Respiratory Rate - - Oxygen Saturation 97% 03/14/2024 11:18 AM CDT Inhaled Oxygen Concentration - - Weight 99.8 kg (220 lb) 03/14/2024 11:18 AM CDT Height - - Body Mass Index 30.68 06/13/2023 1:52 PM MATERIAL CONTROL SPECIALIST documented in this encounter Progress Notes * Herminio Leigh PA-C - 03/14/2024 11:30 AM CDT NEUROSURGERY CLINIC PROGRESS NOTE DATE OF VISIT: 03/14/2024 HPI: Yony Skaggs is a pleasant 68 year old male who presents to the clinic today for a one-year post-operative follow-up visit. On 03/19/2023 the patient underwent a posterior cervical fusion and decompression cervical 4-[address] Yee for cervical spondylosis with myelopathy. Today, the patient reports that he is doing quite well and is pleased with his outcome. He does have some crepitus with cervical rotation, but this is not bothersome to him. Current Outpatient Medications Medication Sig Dispense Refill ATORVASTATIN CALCIUM PO Take 10 mg by mouth daily buprenorphine HCl-naloxone HCl (SUBOXONE) 8-2 MG per film Hold medication until 24 hours after lastdose of oxycodone then resume 1 film under tongue daily chlorthalidone (HYGROTON) 25 MG tablet Take 25 mg by mouth daily CITALOPRAM HYDROBROMIDE PO Take 40 mg by mouth daily fish oil-omega-3 fatty acids 1000 MG capsule Take 2 g by mouth daily fluticasone (FLONASE) 50 MCG/ACT nasal spray [place] 2 sprays into both nostrils as needed GLIPIZIDE PO Take 10 mg by mouth 2 times daily (before meals) glucosamine-chondroitin 500-400 MG CAPS per capsule Take 1 capsule by mouth daily LANTUS SOLOSTAR 100 UNIT/ML soln Inject 40 Units Subcutaneous At Bedtime LOSARTAN POTASSIUM PO Take 100 mg by mouth daily magnesium 250 MG tablet Take 1 tablet by mouth daily METFORMIN HCL PO Take 1,000 mg by mouth 2 times daily (with meals) modafinil (PROVIGIL) 200 MG tablet Take 200 mg by mouth daily multivitamin w/minerals (MULTI-VITAMIN) tablet Take 1 tablet by mouth daily naproxen sodium 220 MG capsule Take 220 mg by mouth 2 times daily as needed omeprazole (PRILOSEC) [address] capsule Take 40 mg by mouth daily ONE TOUCH II SYSTEM KIT bid prn 1 0 oxyBUTYnin (DITROPAN) 5 MG tablet Take 5 mg by mouth 2 times daily OZEMPIC, 2 MG/DOSE, 8 MG/3ML pen Inject 2 mg Subcutaneous every 7 days potassium 99 MG TABS Take 1 tablet by mouth daily tiZANidine (ZANAFLEX) 4 MG tablet Take 1 tablet (4 mg) by mouth 2 times daily as needed for muscle spasms 40 tablet 1 Vitamin D3 (VITAMIN D, CHOLECALCIFEROL,) 25 mcg (1000 units) tablet Take 25 mcg by mouth daily No current facility-administered medications for this visit. No Known Allergies Past Medical History: Diagnosis Date Arthritis Chronic infection History of MRSA 4 years ago-will call infection prevention Gastroesophageal reflux disease Hepatitis hepatitis c cured Hypertension No cardilogist Other chronic pain Cervical pain from fusion surgery PTSD (post-traumatic stress disorder) From severe pain Pulmonary hypertension (H) mild Sleep apnea uses CPAP Type II or unspecified type diabetes mellitus without mention of complication, uncontrolled Walking troubles due to pain of back and balance Review Of Systems Skin: negative Eyes: negative Ears/Nose/Throat: negative Respiratory: No shortness of breath, dyspnea on exertion, cough, or hemoptysis Cardiovascular: negative Gastrointestinal: negative Musculoskeletal: negative Neurologic: negative Psychiatric: negative Hematologic/Lymphatic/Immunologic: negative Endocrine: negative OBJECTIVE: BP 124/66 Pulse 87 Wt 99.8 kg (220 lb) SpO2 97% BMI 30.68 kg/m?? Imaging: Obtained and reviewed today. No complication. Radiographic Findings: Full radiological report in chart. I personally reviewed the images with thepatient today. Exam: Patient appears comfortable and in no apparent distress. Moving all extremities. Gait is non-antalgic. CN II-XII grossly intact, alert and appropriate with conversation and following commands Bilateral upper extremities with full strength including hand intrinsics and grasp. Sensation intact throughout. Bilateral lower extremities 5/5 strength including plantar and dorsiflexion. Normal sensation throughout bilaterally. Cervical incision well healed. PLAN: Yony Skaggs is now one year removed from his posterior cervical decompression and fusion at 4-[address] Yee performed on 03/19/2023. Pre- operatively, he was experiencing myelopathy. At thesix week post-operative evaluation, 04/25/2023, he stated that overall he was doing quite well. In fact, he was able to walk better and run/jog. He was not able to do this prior to surgery. He had remained compliant with his post-operative restrictions, subsequently we increased his activity level.At his three month evaluation, 06/13/2023, he was experiencing a significant improvement in terms of his balance. He was noting difficulty with running and his legs not catching up to his body but since surgery that had resolved. He also noted significant improvement in his hand dexterity bilaterally. Today he again states that he continues to do quite well. We did review his imaging which do not show any signs suggestive of complication. Again, he is quite pleased and very thankful for his overall condition / improvement We did review the images together. We also discussed signs of a worsening problem that he should seek being evaluated. Patient gave verbal understanding and is in agreement with the above plan. Respectfully, ACOSTA Pop PA-C documented in this encounter Nursing Notes * Bhavin Lopez - 03/14/2024 11:30 AM CDT Yony Skaggs is a 68 year old male who presents for: Chief Complaint Patient presents with Surgical Followup 1 year follow-up Vitals: Vitals: 03/14/24 1118 BP: 124/66 Pulse: 87 SpO2: 97% Weight: 220 lb (99.8 kg) BMI: Estimated body mass index is 30.68 kg/m?? as calculated from the following: Height as of 23: 5' 11 (1.803 m). Weight as of this encounter: 220 lb (99.8 kg). Pain Score: No Pain (0) Bhavin Lopez documented in this encounter Plan of Treatment Not on file documented as of this encounter Visit Diagnoses Diagnosis S/P cervical spinal fusion- Primary Arthrodesis status documented in this encounter Care Teams Christian Counselor Relationship Specialty Start Date End Date Obed Jo MD [facility] [address] [address] PCP - General Family Practice 07/28/15 Alec Weiss MD [facility] [address] [address] Neurology 07/28/15 Ric Yee MD [address] [place] [address] [id number] Assigned Neuroscience Provider 02/17/23 03/30/24 documented as of this encounter
--- OUTSIDE RECORDS SUMMARY | 2024-04-22 11:40 | XMS_ITS | Encounter Summary ---
Author Organization [facility] Address [address] [place] [address] Care Team Providers Care Ethics Officer Name Role Phone Alec Weiss MD Unavailable [phone] Obed Jo MD Primary Care Provider [phone] Ric Yee MD Unavailable [phone] Encounter Details Date Type Department Care Team (Latest Contact Info) Description 03/13/2024 Travel Social History Tobacco Use Types Packs/Day [...] on filedocumented in this encounter Care Teams Ethics Officer Relationship Specialty Start Date End Date Obed Jo MD [facility] [address] [id number] PCP - General Family Practice 07/28/15 Alec Weiss MD [facility] [address] [id number] Neurology 07/28/15 Ric Yee MD [address] [place] [id number] Assigned Neuroscience Provider 02/17/23 03/30/24 documented as of this encounter
--- OUTSIDE RECORDS SUMMARY | 2024-04-22 11:40 | XMS_ITS | Clinical Summary ---
Author Organization [facility] Address [address] [place] [address] Care Team Providers Care Tapping Machine Operator Automatic Name Role Phone Alec Weiss MD Unavailable [phone] Oebd Jo MD Primary Care Provider [phone] Herminio Leigh PA-C Unavailable [phone] Allergies No known active allergies Medications Medication [...] Active fluticasone (FLONASE) 50 MCG/ACT nasal spray [place] 2 sprays into both nostrils as needed [...] Provider to review Dysmetabolic syndrome X 03/29/2007 Encounters Date Type Department Care Team Description 03/14/2024 11:30 AM CDT Office Visit [facility] [place] [id number] [address] Herminio Leigh PA-C S/P cervical spinal fusion (Primary Dx) 03/14/2024 10:50 AM CDT Ancillary Procedure [place] [address] [place] [address] Bobby Farooq CNP S/P cervical spinal fusion 03/14/2024 Travel 03/13/2024 Travel from Last 3 Months Immunizations Name Administration Dates Next Due TD,PF [...] 180.3 cm (5' 11) 06/13/2023 1:52 PM PULP OPERATOR Body Mass Index 30.68 06/13/2023 1:52 PM PULP OPERATOR Plan of Treatment Health Maintenance Due Date Last Done Comments ADVANCE CARE PLANNING 1955 ANNUAL REVIEW OF HM ORDERS 1956 CT COLONOGRAPHY 1956 DIABETIC FOOT EXAM 1956 EYE EXAM 1956 FIT 1956 FLEX SIG 1956 MICROALBUMIN 1956 sDNA (Cologuard) 1956 COLONOSCOPY 1966 COLORECTAL CANCER SCREENING 1966 HEPATITIS C SCREENING 1974 LIPID 03/30/2008 03/30/2007 RSV VACCINE (1 - Risk 60-74 years 1-dose series) 2016 FALL RISK ASSESSMENT 2021 MEDICARE ANNUAL WELLNESS VISIT 2021 Pneumococcal Vaccine: 65+ Years (2 of 2 - PCV) 09/14/2022 09/14/2021, 12/07/2008 A1C 09/17/2023 03/19/2023, 01/07, 07/17/2019, Additional history exists COVID-19 Vaccine ( season) 2024 12/04/2023, 08/05/2021, 10/12/2020, Additional history exists INFLUENZA VACCINE (#1) 2024 , 05/01/2020, 04/09/2018, Additional history exists BMP 03/20/2024 03/20/2023, 03/30/2007 DTAP/TDAP/TD IMMUNIZATION (3 - Td or Tdap) 10/23/2028 10/23/2018, 12/07/2008, 09/20/2004 ZOSTER IMMUNIZATION Completed 09/27/2020, 9 PHQ-2 (once per calendar year) Completed 09/12/2023, 02/07/2023 HPV IMMUNIZATION Aged Out No longer e ligible based on patient's age to complete this topic MENINGITIS IMMUNIZATION Aged Out No l onger eligible based on patient's age to complete this topic RSV MONOCLONAL ANTIBODY Aged Out No l onger eligible based on patient's age to complete this topic Medical Devices Implanted Type Area Opinion Polls Survey Worker Device Identifier Shelf Expiration Date Model / Serial / Lot Bone Cement Simplex Full Dose 6191-1-001 Implanted:Qt y: 1 on 01/26/2020 by Dane Patel MD at [facility] Cement, Bone Right: Knee [employer] [id number] 09/05/2021 6191-1-00 1 / / [id number] Bone Cement Simplex W/Tobramycin 6197-9-001 Implanted:Qt y: 1 on 01/26/2020 by Dane Patel MD at [facility] Cement, Bone Right: Knee [employer] [id number] 10/06/2020 6197-9-00 1 / / [id number] Imp [place] Arthrex Bio-Swiveloc k 4.49j81zy [id number] Implanted:Qt y: 2 on 12/25/2017 by Donald Arreguin MD at [facility] Metallic Hardware/An chor Right: Shoulder [employer] 08/08/2019 [id number] C-2 / / [id number] Imp Screw Infinity Spine Apapaiarce38 mmx3.5mm [id number] - [id number] Implanted:Qt y: 4 on 03/19/2023 by Ric Yee MD at [facility] Metallic Hardware/An chor N/A: Posterior Cervical [employer] [id number] / / [id number] Imp Screw Infinity Spine [id number] mmx3.5mm [id number] - [id number] Implanted:Qt y: 2 on 03/19/2023 by Ric Yee MD at [facility] Metallic Hardware/An chor N/A: Posterior Cervical [employer] [id number] / / [id number] Imp Set Screw Medtronic Infinity [id number] - [id number] Implanted:Qt y: 6 on 03/19/2023 by Ric Yee MD at [facility] Metallic Hardware/An chor N/A: Posterior Cervical [employer]-DANEK [id number] / / 8005 [id number] Jose Spnl 40mm 3.5mm Pcut - [id number] Implanted:Qt y: 2 on 03/19/2023 by Ric Yee MD at [facility] Metallic Hardware/An chor N/A: Posterior Cervical [employer] [id number] / / 8005 [id number] Imp Comp Patella Howm Tri 35 10mm 5551-L-350 Implanted:Qt y: 1 on 01/26/2020 by Dane Patel MD at [facility] Total Joint Component/I nsert Right: Knee [employer] [id number] 07/20/2024 5551-L-35 0 / / [id number] Imp Insert Tibial Howm Tri Size 6 09mm 5532-G-609 Implanted:Qt y: 1 on 01/26/2020 by Dane Patel MD at [facility] Total Joint Component/I nsert Right: Knee [employer] 08/01/2023 5532-G-60 9-E / / [id number] Imp Comp Fem Strk Triathln Ps Rt 5 5515-F-502 Implanted:Qt y: 1 on 01/26/2020 by Dane Patel MD at [facility] Total Joint Component/I nsert Right: Knee [employer] [id number] 04/30/2024 5515-F-50 2 / / [id number] Imp Baseplate Tibial Strk Tri Sz 6 5521-B-600 Implanted:Qt y: 1 on 01/26/2020 by Dane Patel MD at [facility] Total Joint Component/I nsert Right: Knee [employer] [id number] 07/28/2024 5521-B-60 0 / / [id number] Procedures [...] appear symmetric. NIRAJ BLUE MD SYSTEM ID: [id number] Narrative 03/14/2024 4:31 PM CDT XR CERVICAL [...] appear symmetric. NIRAJ BLUE MD SYSTEM ID: [id number] Bobby Farooq [facility] NG ORDERABLES * (ABNORMAL) Basic [...] PA-C LAB - BLOOD ORDER TENISHA LABORAT[facility] Lab [address] [facility] Lab (1st floor, no room number) [place] [address], [facility] [phone] * (ABNORMAL) Hemoglobin A1c (03/19/2023 11:59 AM CDT) Hemoglobin A1C 7.3(H) <5.7 % 03/20/2023 3:02 PM CDT LABORATORY Comment: Normal <5.7% Prediabetes 5.7-6.4% ?? Diabetes 6.5% or higher Note: Adopted from ADA consensus guidelines. Blood STRUCTURE OF RIGHT UPPER LIMB / Unknown Venipuncture / Unknown 03/19/2023 11:59 AM CDT 03/19/2023 12:01 PM CDT Meli Skaggs PA-C LAB - BLOOD ORDER TENISHA [facility] Acute Care Lab [address] Lab (1st floor, no room number) [place] [address], [facility] [phone] * (ABNORMAL) A.M.A. LIPID PANEL (03/30/2007 8:35 AM CDT) [facility] Signature Cholesterol 158 0 - 200 mg/dL [facility] Comment: LDL Cholesterol is the primary guide to therapy: LDL-cholesterol goal in high risk patients is <100 mg/dL and in very high risk patients is <70 mg/dL. The NCEP recommends further evaluation of: patients with cholesterol <200 mg/dL if additional risk factors are present, cholesterol >240 mg/dL, triglycerides >150 mg/dL, or HDL <40 mg/dL. Triglycerides 108 0 - 150 mg/dL [facility] HDL Cholesterol 38(L) 40 - 110 mg/dL [facility] LDL Cholesterol Calculated 99 0 - 129 mg/dL [facility] Comment: LDL Cholesterol is the primary guide to therapy: LDL-cholesterol goal in high risk patients is <100 mg/dL and in very high risk patients is <70 mg/dL. VLDL-Cholesterol 22 0 - 30 mg/dL [facility] Cholesterol/HDL Ratio 4.2 0.0 - 5.0 [facility] 03/30/2007 8:35 AM CDT 03/30/2007 8:40 AM CDT Kendell Skelton MD LABORATORY [facility] from Last 3 Months or Most Recently Relevant to Health Maintenance Advance Directives For more information, please contact: [phone] * Full Code (Latest Code Status on [...] Comments Code status determined by: Other (please docconrado t) * Full Code Date Activated Date Inactivated Comments 07/16/2019 7:00 PM 07/17/2019 7:10 AM Full code Question Answer Comments Code status determined by: Other (please alexsandra t) Care Teams Tapping Machine Operator Automatic Relationship Specialty Start Date End Date Obed Jo MD [facility] [address] [facility] [address] [place] [address] PCP - General Family Practice 07/28/15 Alec Weiss MD [facility] [address] [facility] [address] [place] [address] Neurology 07/28/15 Herminio Leigh PA-C [address] [facility] [address] [id number] Assigned Neuroscience Provider 03/31/24
== END 2024-04-22 11:36 | disposition home or self-care (01) ==
LOC: LKVREF 11:36
PROVIDERS: PCP Family Medicine; Visit Provider Family Medicine
DX: E29.1 Testicular hypofunction (principal); E13.9 Other specified diabetes mellitus without complications; Z13.29 Encounter for screening for other suspected endocrine disorder
CPT/HCPCS: 84443

== ENCOUNTER 2024-10-07 09:14 | Outpatient (CLI) | payer OTHER, SELFPAY | END 2024-10-07 09:15 | disposition home or self-care (01) | PROVIDERS: PCP Family Medicine; Visit Provider Family Medicine | DX: E78.2 Mixed hyperlipidemia (principal); E13.65 Other specified diabetes mellitus with hyperglycemia; Z79.4 Long term (current) use of insulin; Z79.84 Long term (current) use of oral hypoglycemic drugs; Z12.5 Encounter for screening for malignant neoplasm of prostate | CPT/HCPCS: 80061; 84681; G0103 ==

== ENCOUNTER 2025-03-10 09:23 | Outpatient (CLI) | payer OTHER, SELFPAY | END 2025-03-10 09:24 | disposition home or self-care (01) | LOC: LKVREF 09:25 | PROVIDERS: PCP Family Medicine; Visit Provider Family Medicine | DX: E29.1 Testicular hypofunction (principal); E13.65 Other specified diabetes mellitus with hyperglycemia; Z79.84 Long term (current) use of oral hypoglycemic drugs | CPT/HCPCS: 80048 ==

== ENCOUNTER 2025-05-06 11:07 | Outpatient (CLI) | payer OTHER, SELFPAY | END 2025-05-06 11:08 | disposition home or self-care (01) | LOC: NFLDREF 05-07 19:25 | PROVIDERS: PCP Family Medicine; Referring Provider Family Medicine; Visit Provider Family Medicine | DX: E34.9 Endocrine disorder, unspecified (principal) | CPT/HCPCS: 80076; 84270; 84402; 84403 ==